=== PATIENT | female | born 1985 | race Asian ===

== ENCOUNTER 2019-10-08 17:55 | Emergency (ER) | payer OTHER ==
[2019-10-08 18:09] VITALS: BP 131/67
[2019-10-08] MEDS ORDERED: HYDROcod/ACET 5/325 Prepack 4 PO STA (18:18)
[2019-10-08] MEDS ORDERED: CLINDAMYCIN 150 MG CAPSULE PO STA (18:18)
[2019-10-08] MEDS ORDERED: HYDROcod/ACETAM 5/325 MG TABLET PO STA (18:18)
--- NOTE | 2019-10-08 18:20 | ED Physician Documentation ---
PD HPI HEENT - Stated complaint Stated Complaint: dental pain - Chief complaint Chief Complaint: Heent - History obtained from History obtained from: Patient - History of Present Illness Timing - onset: Other (Healthy 34-year-old woman with a tooth ache since midday yesterday on the left upper mandibular teeth anteriorly. No facial swelling or fevers. She last saw dentist about 3 months ago before they moved out here from [place], states that she had several teeth at that time that needed addressing and root canals etc.) Review of Systems Constitutional: denies: Fever, Chills Throat: denies: Sore throat Cardiac: denies: Chest pain / pressure, Palpitations Respiratory: denies: Dyspnea PD PAST MEDICAL HISTORY - Present Medications Home Medications: Ambulatory Orders Medication Instructions Recorded Confirmed Clindamycin HCl [Clindamycin 300MG 300 mg PO Q6H #28 capsule 10/08/19 CAP] Hydrocodone/Acetaminophen 1 - 2 each PO Q6H PRN #14 tablet 10/08/19 [Hydrocodon-Acetaminophen 5-325] - Allergies Allergies/Adverse Reactions: Allergies Allergy/AdvReac Type Severity Reaction Status Date / Time shellfish derived Allergy Unknown Verified 10/08/19 18:06 - Social History Does the pt smoke?: No Smoking Status: Never smoker Does the pt drink ETOH?: Yes Does the pt have substance abuse?: No PD ED PE NORMAL - Vitals Vital signs reviewed: Yes - General General: Alert and oriented X 3, Other (Appears slightly uncomfortable) - HEENT HEENT: Other (9. Is tender, there is no obvious cavity there though. She does have a lot of fillings. No facial swelling or trismus. No sublingual edema.) - Neck Neck: Supple, no meningeal sign, No bony TTP - Neuro Neuro: Alert and oriented X 3, Normal speech Results - Vitals Vitals: Vital Signs - 24 hr 10/08/19 18:06 Temperature 36.6 C Heart Rate 80 Respiratory 15 Rate Blood Pressure 131/67 H O2 Saturation 99 Oxygen O2 Source Room air Departure - Departure Disposition: 01 Home, Self Care Clinical Impression: Dental abscess Condition: Good Record reviewed to determine appropriate education?: Yes Instructions: ED Abscess Dental Prescriptions: Clindamycin HCl [Clindamycin 300MG CAP] 300 mg PO Q6H #28 capsule Hydrocodone/Acetaminophen [Hydrocodon-Acetaminophen 5-325] 1 - 2 each PO Q6H PRN #14 tablet PRN Reason: pain Comments: It is very important that you follow-up with a dentist. When it comes to dental problems like yours, the emergency department can only offer a short-term solution to your long-term problem. A couple of low cost options for dental care include: [facility] in [place], calls [phone] for an appointment Or [facility] in [place], call [phone] for an appointment. Your blood pressure was elevated today on check into the emergency department. This does not mean that you have hypertension, it is a common phenomenon to come to the emergency department and have elevated blood pressure. I recommend that you see your primary care physician within the week to have it rechecked when you are feeling better.
== END 2019-10-08 18:34 | disposition home or self-care (01) ==
LOC: ED 17:55
DX: K04.7 Periapical abscess without sinus (principal); R03.0 Elevated blood-pressure reading, without diagnosis of hypertension
CPT/HCPCS: 99282; 99283; A9270

== ENCOUNTER 2019-10-25 12:31 | Emergency (ER) | payer OTHER ==
[2019-10-25 13:55] LABS: BASOPHILS % (AUTO) 0.4 %; EOSINOPHILS # (AUTO) 0.1 10^3/uL (0.0-0.7); HGB - HEMOGLOBIN 13.6 g/dL (12.0-16.0); LYMPHOCYTES # (AUTO) 3.5 10^3/uL (1.5-3.5); LYMPHOCYTES % (AUTO) 36.9 %; MEAN CORPUSCULAR HEMOGLOBIN 27.8 pg (27.0-31.0); MEAN CORPUSCULAR HGB CONC 33.6 g/dL (32.0-36.0); MEAN CORPUSCULAR VOLUME 82.8 fL (81.0-99.0); MEAN PLATELET VOLUME 8.7 fL (7.9-10.8); MONOCYTES # (AUTO) 0.6 10^3/uL (0.0-1.0); MONOCYTES % (AUTO) 6.4 %; NEUTROPHILS # (AUTO) 5.2 10^3/uL (1.5-6.6); NEUTROPHILS % (AUTO) 55.1 %; PLT - PLATELET COUNT 267 10^3/uL (130-450); RED BLOOD COUNT 4.89 10^6/uL (4.20-5.40); RED CELL DISTRIBUTION WIDTH 12.6 % (12.0-15.0); WHITE BLOOD COUNT 9.4 x10^3/uL (4.8-10.8)
--- NOTE | 2019-10-25 14:01 | Ultrasound Report ---
Reason: pelvic pain 7w Procedure Date: 10/25/2019 Accession Number: [id number] / [id number] Procedure: US - OB First Trimester CPT Code: Final Report FULL RESULT: EXAM: FIRST TRIMESTER OBSTETRIC ULTRASOUND (Less than 11 weeks) EXAM DATE: 10/25/2019 01:40 PM. CLINICAL HISTORY: Pelvic pain. History of left ovarian dermoid. LMP: 09/04/2019. COMPARISONS: None. TECHNIQUE: Transabdominal and transvaginal ultrasound examination with static image and cine loop documentation. CLINICAL DATES: EGA 7 weeks 2 days with IRA 06/10/2020 based on LMP 09/04/2019. ASSESSMENT: Gestational Sac: Single intrauterine. Mean gestational sac diameter: 18 mm = 6 weeks 5 days. Embryo: CRL (crown-rump length) 7 mm = 6 weeks 3 days. Cardiac activity: 130 beats per minute. Yolk sac: 4 mm. Amniotic fluid: Not accurately assessed at this gestational age. Early placenta: Not visible at this gestational age. Other: Tiny hypoechoic collection adjacent to the gestational sac measuring 8 x 4 mm in the sagittal plane, compatible with a perigestational bleed. MATERNAL STRUCTURES: Uterus: Anteverted. Unremarkable. Cervix: Closed. Right Ovary/Adnexa: The ovary measures 3.6 x 2.2 x 3.0 cm, volume 12.3 cc. Normal echotexture. Blood flow is present. It contains a corpus luteum measuring 1.7 x 1.4 x 1.7 cm. Left Ovary/Adnexa: The ovary measures 3.5 x 2.6 x 3.5 cm, volume 16.5 cc. Normal echotexture. Blood flow is present. Contains an avascular echogenic mass measuring 2.8 x 2.5 x 2.8 cm, compatible with known dermoid. Free Fluid: None. Other: None. IMPRESSION: 1. Single viable intrauterine at EGA 6 weeks 3 days with IRA 06/16/2020 based on crown-rump length, which is discordant with expected dates based on given LMP. 2. Assigned dating is IRA 06/16/2020 based on current ultrasound. RADIA
[2019-10-25 14:08] LABS: ALBUMIN/GLOBULIN RATIO 1.1 (1.0-2.2); BILIRUBIN,TOTAL 0.5 mg/dL (0.2-1.0); CALCIUM 9.1 mg/dL (8.5-10.3); CREATININE 0.6 mg/dL (0.4-1.0); TOTAL PROTEIN 7.7 g/dL (6.7-8.2)
[2019-10-25 14:42] LABS: BILIRUBIN,URINE NEGATIVE (NEGATIVE); GLUCOSE, URINE (UA) NEGATIVE (NEGATIVE); KETONES,URINE (UA) NEGATIVE (NEGATIVE); LEUKOCYTE ESTERASE, URINE NEGATIVE (NEGATIVE); NITRITE,URINE NEGATIVE (NEGATIVE); OCCULT BLOOD,URINE NEGATIVE (NEGATIVE); PH,URINE 6.5 PH (5.0-7.5); PROTEIN,URINE NEGATIVE (NEGATIVE); UROBILINOGEN,URINE 0.2 (NORMAL) E.U./dL (NORMAL)
[2019-10-25 14:45] LABS: CLARITY,URINE CLEAR (CLEAR)
--- NOTE | 2019-10-25 14:49 | ED Physician Documentation ---
PD HPI FEMALE - Stated complaint Stated Complaint: PELVIC PX - Chief complaint Chief Complaint: Abd Pain - History obtained from History obtained from: Patient, Family - History of Present Illness Timing - onset: How many days ago (4) Timing - duration: Days (4) Timing - details: Gradual onset, Still present, Waxing and waning Associated symptoms: Pelvic pain, Urinary frequency. No: Vaginal pain, Vaginal bleeding Contributing factors: OB-ACUTE CARE NURSE History: G (3), P (2) Similar symptoms before: Has not had sx before Recently seen: Not recently seen - Additional information Additional information: ~34-year-old female with early has developed pelvic pain in the lower right side and this is been present for about 1 week. She has had some nausea she denies any vomiting she is been able to drink water having normal bowel movement. She is approximately 7 weeks by dates and she has had 2 successful pregnancies previously. Review of Systems Constitutional: denies: Fever, Chills, Myalgias, Fatigue Eyes: denies: Decreased vision Ears: denies: Loss of hearing, Ear pain Nose: denies: Rhinorrhea / runny nose, Congestion, Foreign Body Throat: denies: Dental pain / toothache, Oral lesions / sores, Sore throat Cardiac: denies: Chest pain / pressure, Palpitations Respiratory: denies: Dyspnea, Cough GI: reports: Abdominal Pain, Nausea. denies: Vomiting, Constipation, Diarrhea : reports: Frequency. denies: Dysuria Skin: denies: Rash, Lesions Musculoskeletal: denies: Neck pain, Back pain, Extremity pain Neurologic: denies: Generalized weakness, Focal weakness, Numbness PD PAST MEDICAL HISTORY - Past Medical History Past Medical History: No - Present Medications Home Medications: Ambulatory Orders Medication Instructions Recorded Confirmed Clindamycin HCl [Clindamycin 300MG 300 mg PO Q6H #28 capsule 10/08/19 CAP] Hydrocodone/Acetaminophen 1 - 2 each PO Q6H PRN #14 tablet 10/08/19 [Hydrocodon-Acetaminophen 5-325] - Allergies Allergies/Adverse Reactions: Allergies Allergy/AdvReac Type Severity Reaction Status Date / Time shellfish derived Allergy Unknown Verified 10/08/19 18:06 unknown antibiotic Allergy Unknown Uncoded 10/25/19 12:46 - Social History Does the pt smoke?: No Smoking Status: Never smoker Does the pt drink ETOH?: Yes Does the pt have substance abuse?: No PD ED PE NORMAL - Vitals Vital signs reviewed: Yes (hypertensive mild ) - General General: Alert and oriented X 3, No acute distress, Well developed/nourished - HEENT HEENT: Atraumatic, PERRL, EOMI - Neck Neck: Supple, no meningeal sign - Cardiac Cardiac: RRR, No murmur - Respiratory Respiratory: No respiratory distress, Clear bilaterally - Abdomen Abdomen: Normal bowel sounds, Soft, Non distended, No organomegaly, Other (mild RLQ pain to palpation without gaurding or rebound. 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, No motor deficit, No sensory deficit, Normal speech Eye Opening: Spontaneous Motor: Obeys Commands Verbal: Oriented GCS Score: 15 - Psych Psych: Normal mood, Normal affect Results - Vitals Vitals: Vital Signs - 24 hr 10/25/19 10/25/19 12:37 14:49 Temperature 36.5 C 37.2 C Heart Rate 63 79 Respiratory 16 24 Rate Blood Pressure 137/89 H 126/69 O2 Saturation 96 98 Oxygen O2 Source Room air - Labs Labs: Laboratory Tests 10/25/19 10/25/19 10/25/19 13:47 13:49 13:49 WBC 9.4 RBC 4.89 Hgb 13.6 Hct 40.5 MCV 82.8 MCH 27.8 MCHC 33.6 RDW 12.6 Plt Count 267 MPV 8.7 Neut # (Auto) 5.2 Lymph # (Auto) 3.5 Branch # (Auto) 0.6 Eos # (Auto) 0.1 Baso # (Auto) 0.0 Absolute Nucleated RBC 0.00 Nucleated RBC % 0.0 Sodium 136 Potassium 3.9 Chloride 101 Carbon Dioxide 24 Anion Gap 11.0 BUN 9 Creatinine 0.6 Estimated GFR (MDRD) 116 Glucose 97 Calcium 9.1 Total Bilirubin 0.5 AST 17 ALT 16 Alkaline Phosphatase 31 L Total Protein 7.7 Albumin 4.0 Globulin 3.7 Albumin/Globulin Ratio 1.1 Lipase 31 HCG, Quant Urine Color YELLOW Urine Clarity CLEAR Urine pH 6.5 Ur Specific [place] 1.025 Urine Protein NEGATIVE Urine Glucose (UA) NEGATIVE Urine Ketones NEGATIVE Urine Occult Blood NEGATIVE Urine Nitrite NEGATIVE Urine Bilirubin NEGATIVE Urine Urobilinogen 0.2 (NORMAL) Ur Leukocyte Esterase NEGATIVE Ur Microscopic Review NOT INDICATED Urine Culture Comments NOT INDICATED Blood Type 10/25/19 10/25/19 13:49 13:49 WBC RBC Hgb Hct MCV MCH MCHC RDW Plt Count MPV Neut # (Auto) Lymph # (Auto) Branch # (Auto) Eos # (Auto) Baso # (Auto) Absolute Nucleated RBC Nucleated RBC % Sodium Potassium Chloride Carbon Dioxide Anion Gap BUN Creatinine Estimated GFR (MDRD) Glucose Calcium Total Bilirubin AST ALT Alkaline Phosphatase Total Protein Albumin Globulin Albumin/Globulin Ratio Lipase HCG, Quant 92054.00 Urine Color Urine Clarity Urine pH Ur Specific [place] Urine Protein Urine Glucose (UA) Urine Ketones Urine Occult Blood Urine Nitrite Urine Bilirubin Urine Urobilinogen Ur Leukocyte Esterase Ur Microscopic Review Urine Culture Comments Blood Type A POSITIVE - Rads (name of study) u/s ob Radiology: Prelim report reviewed (Impression: 1. Single viable intrauterine at estimated gestational age 3 weeks 6 weeks 3 days with IRA 06/16/2020 based on crown-rump length, which is discordant with expected dates based on given LMP. Assigned dating is IRA 06/16/2020 based on current ultrasound.), EMP read indepedently, See rad report PD MEDICAL DECISION MAKING - ED course Complexity details: reviewed results, re-evaluated patient, considered differential, d/w patient, d/w family ED course: 34-year-old female with right lower quadrant pelvic pain has a corpus luteum cyst on the right and she has a dermoid on the left. I suspect if anything is causing this patient's issue with pain it would be the corpus luteum. Departure - Departure Disposition: 01 Home, Self Care Clinical Impression: Corpus luteum cyst of right ovary Condition: Stable Instructions: Cyst Ovarian About Follow-Up: JACQUELINE Ventura [Provider Group] Forms: Activity restrictions
[2019-10-25 14:50] VITALS: BP 126/69
== END 2019-10-25 15:10 | disposition home or self-care (01) ==
LOC: ED 12:31
DX: O34.81 Maternal care for other abnormalities of pelvic organs, first trimester (principal); N83.11 Corpus luteum cyst of right ovary; O99.89 Other specified diseases and conditions complicating pregnancy, childbirth and the puerperium; D27.1 Benign neoplasm of left ovary; Z3A.01 Less than 8 weeks gestation of pregnancy
CPT/HCPCS: 36415; 76801; 76817; 80053; 81001; 81003; 83690; 84702; 85025; 86900; 86901; 87086; 99284

== ENCOUNTER 2019-11-25 08:56 | Emergency (ER) | payer OTHER ==
--- NOTE | 2019-11-25 09:09 | ED Physician Documentation ---
PD HPI NVD - Stated complaint Stated Complaint: VOMITTING - Chief complaint Chief Complaint: Abd Pain - History obtained from History obtained from: Patient - History of Present Illness Timing - onset: How many weeks ago (7) Timing - duration: Weeks (7) Timing - details: Gradual onset, Still present (More consistent and worse nausea and vomiting the last several days to week. She is keeping some fluids down but has dark urine. Otherwise general weakness. She denies abdominal pain per se. She has had knowledge of nausea with vomiting since discovering 4 weeks gestation which was 7 weeks ago.She has had an ultrasound which demonstrated a single IUP both at 6 weeks and again in the office last week.) Associated symptoms: Loss of appetite. No: Fever, Abdominal pain, Near syncope / syncope, Dysuria Contributing factors: Other (). No: Sick contact, Bad food, Diabetes Improved by: No: Vomiting Worsened by: Eating. No: Breathing Similar symptoms before: Diagnosis (She has had hyperemesis with prior pregnancies and did not get much improvement with Zofran in the past. She is currently on promethazine and vitamin B6 daily) Recently seen: Clinic (1 week ago) Review of Systems Constitutional: reports: Fatigue, Weight Loss (only a few lbs). denies: Fever, Chills, Myalgias Nose: denies: Rhinorrhea / runny nose, Congestion Throat: denies: Sore throat Respiratory: denies: Cough GI: reports: Nausea, Vomiting, Diarrhea. denies: Abdominal Pain, Constipation, Hematemesis, Bloody / black stool : denies: Dysuria, Frequency Skin: denies: Rash, Lesions Neurologic: reports: Generalized weakness. denies: Focal weakness, Numbness, Near syncope PD PAST MEDICAL HISTORY - Past Medical History Cardiovascular: None Respiratory: None Neuro: None Endocrine/Autoimmune: None GI: None - Present Medications Home Medications: Ambulatory Orders Medication Instructions Recorded Confirmed Doxylamine Succinate [Wal-Dirk] 25 mg PO Q6H PRN #60 tablet 11/25/19 Famotidine 20 mg PO DAILY #30 tablet 11/25/19 Potassium Chloride 10 meq PO DAILY #7 tablet.er 11/25/19 Prochlorperazine Supp [Compazine 25 mg VA BID PRN #6 supp 11/25/19 Supp] Promethazine [Phenergan] 25 mg ORAL Q6HR 11/25/19 11/25/19 Pyridoxine HCl (Vitamin B6) 100 mg PO BID #30 tablet 11/25/19 [Vitamin B-6] dexAMETHasone [Decadron] 4 mg PO DAILY #5 tablet 11/25/19 - Allergies Allergies/Adverse Reactions: Allergies Allergy/AdvReac Type Severity Reaction Status Date / Time shellfish derived Allergy Unknown Verified 10/08/19 18:06 unknown antibiotic Allergy Unknown Uncoded 10/25/19 12:46 - Social History Does the pt smoke?: No Smoking Status: Never smoker Does the pt drink ETOH?: Yes Does the pt have substance abuse?: No PD ED PE NORMAL - Vitals Vital signs reviewed: Yes - General General: Alert and oriented X 3, No acute distress, Well developed/nourished - HEENT HEENT: Ears normal, Pharynx benign. No: Moist mucous membranes - Neck Neck: Supple, no meningeal sign, No adenopathy - Cardiac Cardiac: RRR, No murmur - Respiratory Respiratory: Clear bilaterally - Abdomen Abdomen: Normal bowel sounds, Soft, Non tender, Non distended, Other (gravid with fundus low above pubis in this obese patient.) - Back Back: No CVA TTP - Derm Derm: Normal color, Warm and dry - Extremities Extremities: No tenderness to palpate, Normal ROM s pain Results - Vitals Vitals: Vital Signs - 24 hr 11/25/19 11/25/19 11/25/19 09:04 09:41 10:13 Temperature 36.5 C Heart Rate 92 97 87 Respiratory 24 16 16 Rate Blood Pressure 150/119 H 112/87 H 127/86 H O2 Saturation 96 99 99 11/25/19 13:00 Temperature 36.3 C L Heart Rate 79 Respiratory 16 Rate Blood Pressure 122/64 O2 Saturation 97 Oxygen O2 Source Room air - Labs Labs: Laboratory Tests 11/25/19 11/25/19 09:05 09:05 WBC 9.5 RBC 4.87 Hgb 13.9 Hct 40.9 MCV 84.0 MCH 28.5 MCHC 34.0 RDW 12.7 Plt Count 283 MPV 8.6 Neut # (Auto) 5.7 Lymph # (Auto) 3.1 [place] # (Auto) 0.5 Eos # (Auto) 0.1 Baso # (Auto) 0.0 Absolute Nucleated RBC 0.00 Nucleated RBC % 0.0 Sodium 133 L Potassium 3.0 L Chloride 101 Carbon Dioxide 22 Anion Gap 10.0 BUN 8 Creatinine 0.7 Estimated GFR (MDRD) 97 Glucose 108 H Calcium 8.6 Magnesium 2.0 Total Bilirubin 0.5 AST 20 ALT 15 Alkaline Phosphatase 34 L Total Protein 7.8 Albumin 4.0 Globulin 3.8 Albumin/Globulin Ratio 1.1 Lipase 28 PD MEDICAL DECISION MAKING - ED course Complexity details: reviewed results, re-evaluated patient (She is feeling improved with IV fluids antiemetics and acid reducing medicine. She is able to take some fluids orally. I presume she has some gastritis now on top of the related vomiting. She had not had improvement with Phenergan nor Zofran so can change to different antiemetics.), considered differential, d/w patient Departure - Departure Disposition: 01 Home, Self Care Clinical Impression: Hyperemesis gravidarum, Dehydration, Hypokalemia Condition: Stable Record reviewed to determine appropriate education?: Yes Instructions: ED Nausea Vomiting Prescriptions: dexAMETHasone [Decadron] 4 mg PO DAILY #5 tablet Doxylamine Succinate [Wal-Dirk] 25 mg PO Q6H PRN #60 tablet PRN Reason: Nausea / Vomiting Famotidine 20 mg PO DAILY #30 tablet Potassium Chloride 10 meq PO DAILY #7 tablet.er Prochlorperazine Supp [Compazine Supp] 25 mg VA BID PRN #6 supp PRN Reason: Nausea / Vomiting Pyridoxine HCl (Vitamin B6) [Vitamin B-6] 100 mg PO BID #30 tablet Comments: Small frequent fluids and bland food initially. Progress diet as able. Famotidine acid reducing medicine daily for the next month as her stomach is likely irritated from all the vomiting. Since the promethazine was not working well, we can try other nausea medicines. Doxylamine every 6 hours if needed for nausea. Compazine suppository if needed for nausea and vomiting despite the oral medicine. Be sure to continue the vitamin B6 twice daily. Hold your vitamins for now and continue with the Flintstones vitamins of those are better on your stomach. Follow-up with your [employer] this coming week and return as needed. Your potassium level was low on blood testing so add potassium supplement daily for a week. Discharge Date/Time: 11/25/19 13:20
[2019-11-25] MEDS ORDERED: DEXAMETHASONE 10 MG/ML VIAL IVP STA (09:23)
[2019-11-25] MEDS ORDERED: FAMOTIDINE 20 MG/2 ML VIAL IVP STA (09:23)
[2019-11-25] MEDS ORDERED: SODIUM CHLORIDE 0.9% 1,000 ML IV ONE ×2 (09:23→11:06)
[2019-11-25] MEDS ORDERED: PROCHLORPERAZINE 10 MG/2 ML VIAL IVP STA (09:23)
[2019-11-25] MEDS ORDERED: diphenhydrAMINE INJ 50 MG/ML VIAL IVP STA (09:23)
[2019-11-25 09:29] LABS: BASOPHILS % (AUTO) 0.4 %; EOSINOPHILS # (AUTO) 0.1 10^3/uL (0.0-0.7); EOSINOPHILS % (AUTO) 1.5 %; HGB - HEMOGLOBIN 13.9 g/dL (12.0-16.0); LYMPHOCYTES # (AUTO) 3.1 10^3/uL (1.5-3.5); LYMPHOCYTES % (AUTO) 32.6 %; MEAN CORPUSCULAR HEMOGLOBIN 28.5 pg (27.0-31.0); MEAN PLATELET VOLUME 8.6 fL (7.9-10.8); MONOCYTES # (AUTO) 0.5 10^3/uL (0.0-1.0); MONOCYTES % (AUTO) 5.7 %; NEUTROPHILS # (AUTO) 5.7 10^3/uL (1.5-6.6); NEUTROPHILS % (AUTO) 59.5 %; PLT - PLATELET COUNT 283 10^3/uL (130-450); RED BLOOD COUNT 4.87 10^6/uL (4.20-5.40); RED CELL DISTRIBUTION WIDTH 12.7 % (12.0-15.0); WHITE BLOOD COUNT 9.5 x10^3/uL (4.8-10.8)
[2019-11-25 09:41] LABS: ALBUMIN/GLOBULIN RATIO 1.1 (1.0-2.2); BILIRUBIN,TOTAL 0.5 mg/dL (0.2-1.0); CALCIUM 8.6 mg/dL (8.5-10.3); CREATININE 0.7 mg/dL (0.4-1.0); TOTAL PROTEIN 7.8 g/dL (6.7-8.2)
[2019-11-25] MEDS ORDERED: MAG HYDROX/AL HYDROX/SIMETH 30 ML UDC PO STA (11:07)
[2019-11-25] MEDS ORDERED: POTASSIUM CHLOR 10 MEQ/100 ML 10 MEQ/100 ML BAG IV ONE (11:07)
[2019-11-25 13:00] VITALS: BP 122/64
--- NOTE | 2019-12-01 14:04 | ED Physician Documentation ---
ED Addendum - Addendum Addendum: 12/01/19 14:04 Took call from pharmacy, they do not carry Compazine suppositories. I authorized to change to Phenergan 25 mg per rectum every 6 hours as needed for nausea #12
== END 2019-11-25 13:20 | disposition home or self-care (01) ==
LOC: ED 08:56
DX: O21.1 Hyperemesis gravidarum with metabolic disturbance (principal); Z3A.11 11 weeks gestation of pregnancy
CPT/HCPCS: 36415; 80053; 83690; 83735; 85025; 96361; 96365; 96375; 99284; 99285; A9270; J1200

== ENCOUNTER 2021-10-06 09:45 | Emergency (ER) | payer OTHER ==
--- NOTE | 2021-10-06 09:59 | ED Physician Documentation ---
PD HPI URI - Stated complaint Stated Complaint: SOA/COUGH - Chief complaint Chief Complaint: Resp - History obtained from History obtained from: Patient - History of Present Illness Timing - onset: How many weeks ago (had cough and fevers 2 weeks ago and tested positive for COVID over 5-6 days, then was improving general symptoms and tested negative, but continued with cough/dyspnea. The dyspnea with some congestion/wet cough has increased the past 3-5 days.) Timing duration: Weeks (2) Timing details: Gradual onset, Still present (increased dyspnea and cough the past several days in particular.) Associated symptoms: Fever (2 weeks ago for 5-6 days, but not since.), Chills, Nasal congestion, Dry cough (now having some clear sputum to it.) Contributing factors: No: Immunocompromised, Unimmunized, COPD / asthma Worsened by: Activity, Position (feels worse lying down to sleep at night, feeling of crackles/wet in chest.) Similar symptoms before: Diagnosis (she had some heart failure/fluid in lungs at end of last 1 1/2 years ago, with diuretics given. Had eval of ECHO and MRI without subsequent cardiology follow up. Did well post .) Recently seen: Not recently seen Review of Systems Constitutional: reports: Fever (2 weeks ago), Chills Nose: reports: Congestion Cardiac: denies: Chest pain / pressure, Palpitations, Pedal edema Respiratory: reports: Dyspnea, Cough, Wheezing GI: reports: Nausea. 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 : None HEENT: None Psych: None Musculoskeletal: None Derm: Eczema - Past Surgical History Past Surgical History: No - Present Medications Home Medications: Ambulatory Orders Medication Instructions Recorded Confirmed Albuterol Sulf [Ventolin Hfa 2 - 3 puffs INH Q4HR PRN #1 inhaler 10/06/21 Inhaler] Furosemide [Lasix] 20 mg PO DAILY 7 Days #7 tablet 10/06/21 cephALEXin [Keflex] 500 mg PO TID #20 cap 10/06/21 dexAMETHasone [Decadron] 4 mg PO DAILY #5 tablet 10/06/21 - Allergies Allergies/Adverse Reactions: Allergies Allergy/AdvReac Type Severity Reaction Status Date / Time shellfish derived Allergy Unknown Verified 10/06/21 09:48 unknown antibiotic Allergy Unknown Uncoded 10/25/19 12:46 - Social History Does the pt smoke?: No Smoking Status: Never smoker Does the pt drink ETOH?: Yes Does the pt have substance abuse?: No - Immunizations Immunizations are current?: Yes PD ED PE NORMAL - Vitals Vital signs reviewed: Yes - General General: Alert and oriented X 3, Well developed/nourished - HEENT HEENT: Pharynx benign - Neck Neck: Supple, no meningeal sign, No adenopathy - Cardiac Cardiac: RRR, No murmur - Respiratory Respiratory: No: Clear bilaterally (no coarse sounds. has some exp wheezes centrally. ) - Abdomen Abdomen: Soft, Non tender - Derm Derm: Normal color, Warm and dry - Extremities Extremities: Other (minimal edema in both lower legs. ) - Neuro Neuro: Alert and oriented X 3, No motor deficit, Normal speech Results - Vitals Vitals: Vital Signs - 24 hr 10/06/21 10/06/21 09:48 10:42 Temperature 36.4 C L Heart Rate 84 74 Respiratory 20 26 H Rate Blood Pressure 148/108 H 145/100 H O2 Saturation 98 97 Oxygen O2 Source Room air - EKG (time done) 10:31 Rate: Rate (enter#) (78) Rhythm: NSR, Other (frequent PVCs (bigeminal briefly)) [place]: Normal Intervals: Normal [place] QRS: Normal Ischemia: Normal ST segments. No: ST elevation c/w ischemia, ST depression - Labs Labs: Laboratory Tests 10/06/21 10/06/21 10/06/21 10:30 10:30 10:30 WBC 6.7 RBC 5.10 Hgb 14.1 Hct 43.2 MCV 84.7 MCH 27.6 MCHC 32.6 RDW 12.4 Plt Count 292 MPV 8.8 Neut # (Auto) 3.3 Lymph # (Auto) 2.5 [place] # (Auto) 0.4 Eos # (Auto) 0.5 Baso # (Auto) 0.0 Absolute Nucleated RBC 0.00 Nucleated RBC % 0.0 Sodium 135 Potassium 4.2 Chloride 102 Carbon Dioxide 26 Anion Gap 7.0 BUN 10 Creatinine 0.7 Estimated GFR (MDRD) 96 Glucose 109 H Calcium 8.7 Total Bilirubin 0.6 AST 17 ALT 19 Alkaline Phosphatase 38 L Troponin I High Sens 3.9 C-Reactive Protein < 1.0 B-Natriuretic Peptide Total Protein 7.8 Albumin 4.1 Globulin 3.7 Albumin/Globulin Ratio 1.1 Lipase 30 10/06/21 10:30 WBC RBC Hgb Hct MCV MCH MCHC RDW Plt Count MPV Neut # (Auto) Lymph # (Auto) [place] # (Auto) Eos # (Auto) Baso # (Auto) Absolute Nucleated RBC Nucleated RBC % Sodium Potassium Chloride Carbon Dioxide Anion Gap BUN Creatinine Estimated GFR (MDRD) Glucose Calcium Total Bilirubin AST ALT Alkaline Phosphatase Troponin I High Sens C-Reactive Protein B-Natriuretic Peptide 22 Total Protein Albumin Globulin Albumin/Globulin Ratio Lipase - Rads (name of study) chest xray Radiology: Prelim report reviewed (increased interstitial markings could be c/w edema, atypical pneumonia. Enlarged heart. ), See rad report PD MEDICAL DECISION MAKING - ED course Complexity details: reviewed results, considered differential (residual of covid with dyspnea possible, vs developing secondary pneumonia vs myocarditis. Prior history of related cardiomyopathy. Unsure the effect of recent COVID on this. Can go short course diuretic, steroid, inhaler and abx. ), d/w patient Departure - Departure Disposition: 01 Home, Self Care Clinical Impression: Dyspnea due to COVID-19, Fluid retention Pneumonia Qualifiers: Pneumonia type: due to unspecified organism Laterality: unspecified laterality Lung location: lower lobe of lung Qualified Code(s): J18.9 - Pneumonia, unspecified organism Condition: Stable Record reviewed to determine appropriate education?: Yes Instructions: ED Pneumonia Adult Follow-Up: [facility] [Provider Group] Prescriptions: Albuterol Sulf [Ventolin Hfa Inhaler] 2 - 3 puffs INH Q4HR PRN #1 inhaler PRN Reason: Shortness Of Air/Wheezing dexAMETHasone [Decadron] 4 mg PO DAILY #5 tablet cephALEXin [Keflex] 500 mg PO TID #20 cap Furosemide [Lasix] 20 mg PO DAILY 7 Days #7 tablet Comments: Your chest x-ray shows a little bit of fluid within the lung tissue on both sides. This can be findings consistent with Covid infection and may last for a few weeks. Alternatively would be developing secondary pneumonia or perhaps a little bit of fluid retention/edema. We can treat this with albuterol inhaler 2 puffs 3-4 times a day regularly for the next several days to week. Also Decadron steroid daily for the next 5 days for inflammation of the airways. This would be the treatment for the inflammation related to the Covid infection. Add cephalexin 3 times a day for a week for potential secondary bacterial infection. Also add furosemide daily for the next 3 to 7 days to help with possible fluid retention. Your blood test do not suggest any signs of overt heart failure, kidney failure, heart muscle injury. [facility] Recheck if not improving well over the next several days. Discharge Date/Time: 10/06/21 11:40
[2021-10-06] MEDS ORDERED: ALBUTEROL 1 PUFF INH STA (10:17)
[2021-10-06 10:34] LABS: BASOPHILS % (AUTO) 0.6 %; EOSINOPHILS # (AUTO) 0.5 10^3/uL (0.0-0.7); EOSINOPHILS % (AUTO) 7.1 %; HCT - HEMATOCRIT 43.2 % (37.0-47.0); HGB - HEMOGLOBIN 14.1 g/dL (12.0-16.0); LYMPHOCYTES # (AUTO) 2.5 10^3/uL (1.5-3.5); LYMPHOCYTES % (AUTO) 37.2 %; MEAN CORPUSCULAR HEMOGLOBIN 27.6 pg (27.0-31.0); MEAN CORPUSCULAR HGB CONC 32.6 g/dL (32.0-36.0); MEAN CORPUSCULAR VOLUME 84.7 fL (81.0-99.0); MEAN PLATELET VOLUME 8.8 fL (7.9-10.8); MONOCYTES # (AUTO) 0.4 10^3/uL (0.0-1.0); MONOCYTES % (AUTO) 5.7 %; NEUTROPHILS # (AUTO) 3.3 10^3/uL (1.5-6.6); NEUTROPHILS % (AUTO) 49.2 %; PLT - PLATELET COUNT 292 10^3/uL (130-450); RED CELL DISTRIBUTION WIDTH 12.4 % (12.0-15.0); WHITE BLOOD COUNT 6.7 x10^3/uL (4.8-10.8)
[2021-10-06 10:44] VITALS: BP 145/100
[2021-10-06 10:53] LABS: ALBUMIN 4.1 g/dL (3.2-5.5); ALBUMIN/GLOBULIN RATIO 1.1 (1.0-2.2); ALKALINE PHOSPHATASE 38 IU/L (42-121); ALT ALANINE AMINOTRANSFERASE 19 IU/L (10-60); AST ASPARTATE AMINOTRANSFERASE 17 IU/L (10-42); BILIRUBIN,TOTAL 0.6 mg/dL (0.2-1.0); BUN - BLOOD UREA NITROGEN 10 mg/dL (6-20); CALCIUM 8.7 mg/dL (8.5-10.3); CARBON DIOXIDE - CO2 26 mmol/L (21-32); CHLORIDE 102 mmol/L (101-111); CREATININE 0.7 mg/dL (0.4-1.0); CRP - C-REACTIVE PROTEIN < 1.0 mg/dL (0-1.0); GFR - MDRD 96 (>89); GLUCOSE 109 mg/dL (70-100); LIPASE 30 U/L (22-51); POTASSIUM 4.2 mmol/L (3.5-5.0); SODIUM 135 mmol/L (135-145); TOTAL PROTEIN 7.8 g/dL (6.7-8.2)
--- NOTE | 2021-10-06 10:58 | XRAY Report ---
PROCEDURE: Chest 1 View X-Ray INDICATIONS: dyspnea, cough TECHNIQUE: One view of the chest was acquired. COMPARISON: None FINDINGS: Surgical changes and devices: None. Lungs and pleura: No pleural effusions or pneumothorax. There is an overall appearance of increased interstitial disease. Mediastinum: Mediastinal contours appear normal. Heart size is enlarged. Bones and chest wall: No suspicious bony lesions. Overlying soft tissues appear unremarkable. IMPRESSION: Cardiomegaly with increased interstitial markings. The latter could be suggestive of edema or potenti ally developing airspace disease such as pneumonia. Reviewed by: Janelle Murray MD on 10/06/2021 10:56 AM [facility] Approved by: Janelle Murray MD on 10/06/2021 10:56 AM [facility] Station ID: [id number]
[2021-10-06] MEDS ORDERED: FUROSEMIDE 20 MG TABLET PO STA (11:13)
[2021-10-06] MEDS ORDERED: cephALEXin 250 MG CAPSULE PO STA (11:13)
[2021-10-06] MEDS ORDERED: CHERRY SYRUP 10 ML UDC PO ONE (11:13)
[2021-10-06] MEDS ORDERED: DEXAMETHASONE 10 MG/ML VIAL PO STA (11:13)
== END 2021-10-06 11:40 | disposition home or self-care (01) ==
LOC: ED 09:45
DX: U07.1 COVID-19 (principal); J18.9 Pneumonia, unspecified organism
CPT/HCPCS: 36415; 71045; 80053; 83690; 83880; 84484; 85025; 86140; 93005; 94640; 94664; 99284; A9270

== ENCOUNTER 2021-10-27 09:39 | Emergency (ER) | payer OTHER ==
--- NOTE | 2021-10-27 11:00 | XRAY Report ---
PROCEDURE: Chest 1 View X-Ray INDICATIONS: sob TECHNIQUE: One view of the chest was acquired. COMPARISON: 10/06/2021 FINDINGS: Surgical changes and devices: None. Lungs and pleura: No pleural effusions or pneumothorax. Lungs are clear. Mediastinum: Mediastinal contours appear normal. Heart size is enlarged. Bones and chest wall: No suspicious bony lesions. Overlying soft tissues appear unremarkable. IMPRESSION: No acute cardiopulmonary pathology. Reviewed by: Rubens Allen MD on 10/27/2021 10:59 AM [facility] Approved by: Rubens Allen MD on 10/27/2021 10:59 AM [facility] Station ID: [id number]
--- NOTE | 2021-10-27 12:42 | ED Physician Documentation ---
PD HPI DYSPNEA - Stated complaint Stated Complaint: SOA - Chief complaint Chief Complaint: Resp - History obtained from History obtained from: Patient - Additional information Additional information: The patient comes emergency department chief complaint of recurrence of some dyspnea and wheezing over the last week. The patient also states she feels crackles in her chest when she lays down. The patient has history of pulmonary edema after previously she also was seen here a couple of weeks ago, about a month after arvin Covid, and was found to have some mild findings of fluid in her lungs. The patient states that she was placed on an albuterol inhaler and Lasix and that she completed the course of Lasix and felt better. However, over the past week she has begun to notice recurrence of symptoms. Review of her records reveals that at that time, her BNP was normal at 22. Her chest x-ray at that time was read as cardiomegaly with increasing interstitial findings, edema versus pneumonia. The patient states that in times past, when she had the pulmonary edema after , it was suggested that she follow-up with a mill attendant. However, she states that her doctor told her she probably had diabetes and never referred her to cardiology. Patient cites several years of frustrations with her PCP, after she which she decided to find a new one. However, she has not found a new PCP yet and is not currently scheduled to see anybody. She never did see cardiology. She has never had an echocardiogram. The patient denies any edema in her lower extremities at this time. No pain in the calves. No chest pain. No fevers. Review of Systems Ten Systems: 10 systems reviewed and negative Constitutional: reports: Reviewed and negative Eyes: reports: Reviewed and negative Ears: reports: Reviewed and negative Nose: reports: Reviewed and negative Throat: reports: Reviewed and negative Cardiac: reports: Reviewed and negative Respiratory: reports: Dyspnea GI: reports: Reviewed and negative : reports: Reviewed and negative Skin: reports: Reviewed and negative Musculoskeletal: reports: Reviewed and negative. 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 : None HEENT: None Psych: None Musculoskeletal: None Derm: Eczema - Past Surgical History Past Surgical History: No - Present Medications Home Medications: Ambulatory Orders Medication Instructions Recorded Confirmed No Known Home Medications 10/27/21 10/27/21 - Allergies Allergies/Adverse Reactions: Allergies Allergy/AdvReac Type Severity Reaction Status Date / Time shellfish derived Allergy Unknown Verified 10/06/21 09:48 unknown antibiotic Allergy Unknown Uncoded 10/25/19 12:46 - Social History Does the pt smoke?: No Smoking Status: Never smoker Does the pt drink ETOH?: Yes Does the pt have substance abuse?: No - Immunizations Immunizations are current?: Yes PD ED PE NORMAL - Vitals Vital signs reviewed: Yes - General General: Alert and oriented X 3, No acute distress, Well developed/nourished, Other (The patient is overall well-appearing and in no distress) - HEENT HEENT: Atraumatic, PERRL, EOMI, Moist mucous membranes - Neck Neck: Supple, no meningeal sign - Cardiac Cardiac: RRR, No murmur, Strong equal pulses - Respiratory Respiratory: No respiratory distress, Clear bilaterally - Abdomen Abdomen: Soft, Non tender, Other (Obese) - Derm Derm: Normal color, Warm and dry, No rash - Extremities Extremities: No deformity, No edema, No calf tenderness / cord - Neuro Neuro: Alert and oriented X 3, Other (Grossly intact) - Psych Psych: Normal mood, Normal affect Results - Vitals Vitals: Vital Signs - 24 hr 10/27/21 10/27/21 09:45 11:49 Temperature 36.0 C L Heart Rate 81 76 Respiratory 20 17 Rate Blood Pressure 157/88 H 129/77 O2 Saturation 97 100 Oxygen O2 Source Room air - Labs Labs: Laboratory Tests 10/27/21 11:24 B-Natriuretic Peptide 21 - Rads (name of study) Chest x-ray Radiology: Final report received, EMP read indepedently, See rad report (Negative) PD MEDICAL DECISION MAKING - ED course Complexity details: reviewed results, re-evaluated patient, considered differential, d/w patient ED course: The patient's BNP today was 21 and her chest x-ray is negative. I discussed with her that she does need to get established with a primary care physician and discuss whether she should be referred to cardiology for further evaluation. At this point in time, though I have considered putting her back on Lasix, I do not really have an indication for this, since her x-ray and BNP are both normal. I have advised the patient that she needs to get established with primary care as soon as possible. She may use the inhaler if this seems to help her. She has a single wheeze in her upper lung finn that I suspect is coming from one of her upper airways, but otherwise, she does not have any obvious bronchospasm. We discussed the usual indications for return Departure - Departure Disposition: 01 Home, Self Care Clinical Impression: Dyspnea Qualifiers: Dyspnea type: shortness of breath Qualified Code(s): R06.02 - Shortness of breath; R06.00 - Dyspnea, unspecified; R06.01 - Orthopnea Condition: Stable Instructions: ED Dyspnea Shortness of Breath Comments: Your chest x-ray looks good and has read by the radiologist is completely normal. Your BNP, the lab for congestive heart failure is completely normal, and slightly less than last time. It is not clear exactly why you are having the sense of shortness of breath, but there is no evidence of fluid retention at this time, whether in your lungs or elsewhere. It is important that you see your primary care physician as soon as possible to discuss further evaluation of the symptoms. For now, if the inhaler helps you to feel better you may use it. Further diuretics are unlikely to be of benefit at this time
[2021-10-27 12:49] VITALS: BP 132/76
== END 2021-10-27 12:52 | disposition home or self-care (01) ==
LOC: ED 09:39
DX: R06.02 Shortness of breath (principal); R06.01 Orthopnea
CPT/HCPCS: 36415; 83880; 99282; 99284

== ENCOUNTER 2022-05-17 18:32 | Emergency (ER) | payer OTHER ==
[2022-05-17 19:25] LABS: BILIRUBIN,URINE NEGATIVE (NEGATIVE); GLUCOSE, URINE (UA) NEGATIVE (NEGATIVE); KETONES,URINE (UA) NEGATIVE (NEGATIVE); LEUKOCYTE ESTERASE, URINE NEGATIVE (NEGATIVE); NITRITE,URINE NEGATIVE (NEGATIVE); OCCULT BLOOD,URINE NEGATIVE (NEGATIVE); PROTEIN,URINE NEGATIVE (NEGATIVE); UROBILINOGEN,URINE 0.2 (NORMAL) E.U./dL (NORMAL)
[2022-05-17 19:27] LABS: CLARITY,URINE CLEAR (CLEAR)
--- NOTE | 2022-05-17 19:36 | ED Physician Documentation ---
History of Present Illness - Stated complaint Stated Complaint: STOMACH PX - Chief complaint Chief Complaint: Abd Pain - Additonal information Additional information: 36-year-old female presents emergency department for evaluation of upper e pigastric pain. She is concerned she could have appendicitis. Patient reports that symptoms began 2 mornings ago. She initially vomited. She thought maybe she had the mild stomach Flu but her symptoms have not resolved. She is taken Tylenol without relief of symptoms. Though she has been pooping normally she did take some Colace just to see if that would help. She denies dysuria urgency or frequency. Denies a possibility of . No history of previous surgical interventions. Takes no prescribed medications but describes her self is prediabetic and is scheduled to see her doctor in follow-up of recent screening labs on 26 May Review of Systems Constitutional: denies: Fever, Chills Nose: reports: Reviewed and negative Throat: reports: Reviewed and negative Cardiac: reports: Reviewed and negative GI: reports: Abdominal Pain, Nausea. 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 : None HEENT: None Psych: None Musculoskeletal: None Derm: Eczema - Past Surgical History Past Surgical History: No - Present Medications Home Medications: Ambulatory Orders Medication Instructions Recorded Confirmed No Known Home Medications 10/27/21 05/17/22 - Allergies Allergies/Adverse Reactions: Allergies Allergy/AdvReac Type Severity Reaction Status Date / Time shellfish derived Allergy Unknown Verified 10/06/21 09:48 unknown antibiotic Allergy Unknown Uncoded 10/25/19 12:46 - Social History Does the pt smoke?: No Smoking Status: Never smoker Does the pt drink ETOH?: Yes Does the pt have substance abuse?: No - Immunizations Immunizations are current?: Yes PD ED PE NORMAL - General General: Alert and oriented X 3, No acute distress, Well developed/nourished - HEENT HEENT: Atraumatic, Moist mucous membranes - Neck Neck: Supple, no meningeal sign, No adenopathy - Cardiac Cardiac: RRR, No murmur - Respiratory Respiratory: No respiratory distress, Clear bilaterally - Abdomen Abdomen: Normal bowel sounds, Soft. No: Non tender (Exam is limited by body habitus. Mild tenderness elicited in the epigastrium and right flank. No guarding or rebound. McBurney's negative Tomas's) Results - Vitals Vitals: Vital Signs - 24 hr 05/17/22 18:38 Temperature 36.1 C L Heart Rate 87 Respiratory 16 Rate Blood Pressure 150/77 H O2 Saturation 96 Oxygen O2 Source Room air - Labs Labs: Laboratory Tests 05/17/22 05/17/22 05/17/22 19:10 19:54 19:54 WBC 7.8 RBC 4.89 Hgb 13.7 Hct 40.0 MCV 81.8 MCH 28.0 MCHC 34.3 RDW 12.2 Plt Count 262 MPV 8.8 Neut # (Auto) 3.9 Lymph # (Auto) 3.3 [place] # (Auto) 0.5 Eos # (Auto) 0.2 Baso # (Auto) 0.0 Absolute Nucleated RBC 0.00 Nucleated RBC % 0.0 Sodium 136 Potassium 3.6 Chloride 102 Carbon Dioxide 25 Anion Gap 9.0 BUN 12 Creatinine 0.6 Estimated GFR (MDRD) 114 Glucose 129 H Calcium 9.3 Total Bilirubin 0.4 AST 20 ALT 21 Alkaline Phosphatase 36 L Total Protein 7.6 Albumin 4.3 Globulin 3.3 Albumin/Globulin Ratio 1.3 Lipase 33 Urine Color YELLOW Urine Clarity CLEAR Urine pH 6.0 Ur Specific [place] 1.020 Urine Protein NEGATIVE Urine Glucose (UA) NEGATIVE Urine Ketones NEGATIVE Urine Occult Blood NEGATIVE Urine Nitrite NEGATIVE Urine Bilirubin NEGATIVE Urine Urobilinogen 0.2 (NORMAL) Ur Leukocyte Esterase NEGATIVE Ur Microscopic Review NOT INDICATED Urine Culture Comments NOT INDICATED - Rads (name of study) Ct abd Radiology: Final report received (No renal ureter or bladder calculi. Gallbladder is unremarkable. Hepatic steatosis is present. Fat-containing mass within the left adnexa. This may represent a dermoid.) PD MEDICAL DECISION MAKING - ED course Complexity details: reviewed results, re-evaluated patient, considered differential, d/w patient ED course: 36-year-old female presents emergency department for evaluation of 3 days upper epigastric abdominal pain. She has vomited once. She initially thought that perhaps she had the stomach flu but over the course last 3 days the pain has not changed. No melena, fevers. No urinary symptoms. Here in the emergency department her CBC electrolytes and urine are all entirely unremarkable without abnormality seen. Abdominal exam was rather limited given morbid obesity. A CT was completed. No acute intra-abdominal findings were seen including evaluation of the gallbladder bowel and appendix. There was an incidental finding made of a fat-containing mass within the left adnexa. I discussed this finding with the patient and she was previously known to have a dermoid cyst. The etiology of patient's symptoms is not entirely clear at this time though she appears hemodynamically medically stable. She is discharged home. Advised to follow-up with primary care provider. Return precautions were discussed for worsening pain, development of fevers or any uncontrolled vomiting. Departure - Departure Disposition: Home, Self Care Clinical Impression: Epigastric abdominal pain Condition: Stable Record reviewed to determine appropriate education?: Yes Instructions: ED Abdominal Pain Cause Unkn Fem Ch Comments: You are seen today in the emergency department because you have had 3 days of upper abdominal pain. Here in the emergency department your blood count, electrolytes and urine were all entirely normal. We did do a CT of your abdomen and do not finding any worrisome causes such as appendicitis, gallbladder disease or bowel obstructions. We do see a fat-containing mass within the left adnexa but you are previously known to have a dermoid cyst which this likely reflects. Here in the emergency department I did give you some Maalox and lidocaine as medications to numb and cool the stomach. You may be having some mild acid reflux or gastritis. I encourage you to discuss this ED visit with your primary care provider. If you find that your symptoms are worsening, you develop fevers, have uncontrolled vomiting, black or bloody stools then please return immediately to the ER for second evaluation
[2022-05-17 19:58] LABS: BASOPHILS % (AUTO) 0.4 %; EOSINOPHILS # (AUTO) 0.2 10^3/uL (0.0-0.7); EOSINOPHILS % (AUTO) 2.3 %; HGB - HEMOGLOBIN 13.7 g/dL (12.0-16.0); LYMPHOCYTES # (AUTO) 3.3 10^3/uL (1.5-3.5); LYMPHOCYTES % (AUTO) 41.7 %; MEAN CORPUSCULAR HGB CONC 34.3 g/dL (32.0-36.0); MEAN CORPUSCULAR VOLUME 81.8 fL (81.0-99.0); MEAN PLATELET VOLUME 8.8 fL (7.9-10.8); MONOCYTES # (AUTO) 0.5 10^3/uL (0.0-1.0); MONOCYTES % (AUTO) 5.9 %; NEUTROPHILS # (AUTO) 3.9 10^3/uL (1.5-6.6); NEUTROPHILS % (AUTO) 49.6 %; PLT - PLATELET COUNT 262 10^3/uL (130-450); RED BLOOD COUNT 4.89 10^6/uL (4.20-5.40); RED CELL DISTRIBUTION WIDTH 12.2 % (12.0-15.0); WHITE BLOOD COUNT 7.8 x10^3/uL (4.8-10.8)
[2022-05-17 20:09] LABS: ALBUMIN 4.3 g/dL (3.2-5.5); ALBUMIN/GLOBULIN RATIO 1.3 (1.0-2.2); BILIRUBIN,TOTAL 0.4 mg/dL (0.2-1.0); CALCIUM 9.3 mg/dL (8.5-10.3); CREATININE 0.6 mg/dL (0.4-1.0); POTASSIUM 3.6 mmol/L (3.5-5.0); TOTAL PROTEIN 7.6 g/dL (6.7-8.2)
--- NOTE | 2022-05-17 20:10 | CT Report ---
PROCEDURE: Abdomen/Pelvis WO INDICATIONS: right flank pain TECHNIQUE: Noncontrast 5 mm thick sections acquired from the diaphragms to the symphysis. 5 mm coronal and sagi ttal reformats were then performed. For radiation dose reduction, the following was used: automated exposure control, adjustment of mA and/or kV according to patient size. COMPARISON: None. FINDINGS: Image quality: Excellent. ABDOMEN: Lung bases: Lung bases are clear. Heart size is normal. Solid organs: Liver and spleen are normal in size. Hepatic steatosis is present. Gallbladder is unre markable. Pancreas is normal in contours. No adrenal nodules. Kidneys are normal in size, without hydronephrosis or nephrolithiasis. Peritoneum and bowel: Unenhanced bowel loops demonstrate normal wall thickness and caliber. No free fluid or air. Nodes and vessels: No retroperitoneal or mesenteric adenopathy by size criteria. Aorta and inferior vena cava are normal in caliber. Miscellaneous: No ventral hernias. PELVIS: Genitourinary: Bladder wall thickness is normal. There is a fat-containing density within the left adnexa measuring 2.5 cm. Miscellaneous: No inguinal hernias or adenopathy. Bones: No suspicious bony lesions. No vertebral body compression fractures. IMPRESSION: No renal, ureteral or bladder calculi. Fat-containing mass within the left adnexa. This may represent a dermoid. No priors are available for comparison. Pelvic ultrasound may be obtained for further evaluation as clinically indicated. Reviewed by: Janelle Murray MD on 05/17/2022 8:08 PM PDT Approved by: Janelle Murray MD on 05/17/2022 8:08 PM PDT Station ID: [id number]
[2022-05-17] MEDS ORDERED: MAG HYDROX/AL HYDROX/SIMETH 30 ML UDC PO STA (20:29)
[2022-05-17] MEDS ORDERED: LIDOCAINE VISCOUS 2% 15 ML UDC MM STA (20:29)
[2022-05-17 20:57] VITALS: BP 151/96
== END 2022-05-17 20:58 | disposition home or self-care (01) ==
LOC: ED 18:32
DX: R10.13 Epigastric pain (principal)
CPT/HCPCS: 36415; 74176; 80053; 81003; 83690; 85025; 99282; 99284; A9270; 81001; 87086

== ENCOUNTER 2022-10-07 15:52 | Outpatient (CLI) | payer OTHER ==
--- NOTE | 2022-10-07 16:34 | SLEEP CARE CONSULTATION ---
Information from patient questionnaire entered by Nicole Wick. I have reviewed and concur with the information entered by Nicole Wick. This document represents the service I personally performed and the decisions made by me, Tricia Garsia ARNP. History of Present Illness Service Date and Time: 10/07/2022 1552 Reason for Visit: New patient Chief Complaint: reports: Insomnia, Excessive daytime sleepiness, Fatigue, Frequent awakenings at night Date of Onset: QUITE A WHILE Usual bedtime: 9PM Time it takes to fall asleep: ABOUT 30MIN DEPENDING ON THE DAY Snores at night: Yes Observed to quit breathing while asleep: No Sleeps alone due to snoring: No Number of times waking at night: 2-3 Reasons for waking at night: reports: Other (NOISE AND UNKNOWN REASONS ). denies: Choking, Snoring, Gasping for air Toss, Turn, or Twitch while sleeping: Yes Recalls having dreams: Yes Usually gets out of bed at: 6-10AM Feels refreshed in the morning: No Morning headache: Yes (SOMETIMES; 1-2 times a week which last 3-4 hours or all day) Sleepy or fatigued during the day: Yes Ever fallen asleep while driving: No Takes day naps: Yes (weekends if not busy, for 1-2 hours) Dreams during day naps: Yes Prior sleep studies: No Additional HPI information: I had the pleasure of seeing COREY CLANCY today regarding the possibility of her having a sleep disorder. Her current complaints are insomnia, excessive daytime sleepiness, fatigue and frequent night awakenings. She states she has been told about four times now that she might need to get a sleep study. She is tired all the time and does not wake up feeling rested. She has no energy during the day. She has been through lots of testing through her primary doctor and was recently referred here for further evaluation of her sleep. Her has told her she only snores when she is really tired. He did tell her recently when they were traveling that she was "breathing weird" with short breaths that were harsh. She states she did have a respiratory illness at that time so she is not sure if this is normal for her. She wakes up several times a night for noises and other unknown reasons. She states her mother has sleep apnea and is using a PAP machine. - Parasomnia Symptoms Ever been unable to move upon waking from sleep: No Walks in sleep: No Talks in sleep: No (UNKNOWN ) Ever acted out dreams in sleep: No Ever felt weak in the knees when startled or emotional: No Bothered by creepy, crawly, restless sensations in legs: No Problems with memory or concentration: Yes (both; foggy headed, short term memory issues; hard time concentrating) Subjective Initial [place] Sleepiness Scale score: 16 (08/20/22) Past Medical History Past Medical History: reports: Other (eczema) Social History The patient's occupation is a [employer]. Patient is and lives in [place]. Have you smoked in the past 12 months: Yes Cigarettes per day (20/pack): 0 (SOCIALLY ONLY ) Alcohol use: Yes Alcohol amount and frequency: NOT MUCH SOCIALLY Caffeine use: Yes Caffeine amount and frequency: NOT MUCH NOT OFTEN Family History Family history of sleep disordered breathing: Yes Family Hx Sleep Apnea: Mother: Snoring, Sleep apnea - Treated, Father: Snoring, Sibling: Snoring Allergies and Home Medications Known drug allergies: No (UNKNOWN ANTIBIOTIC ) Drug allergies reviewed: Yes Home medication list reviewed: Yes (see list in EMR) Review of Systems Weight gain over past 5 years: 80 Cardiovascular: denies: high blood pressure Respiratory: denies: shortness of breath Gastrointestinal: denies: heartburn Neurological: reports: headaches Psychiatric: denies: anxiety, depression Ear/Nose/Throat: denies: tonsillectomy Endocrine: denies: thyroid disease Immunologic: reports: sneezing, rash, itching, allergies to food or environment Physical Exam Vital signs obtained and entered by: NICOLE Pickett MA Blood Pressure: 116/68 (LEFT ARM) Cuff size: long Heart Rate: 83 O2 Saturation: 96 Height: 5 ft 5.5 in Weight: 289 lb 6.4 oz Body Mass Index: 47.4 BMI Classification: Morbidly Obese Neck circumference: 17.75 Mouth and throat: narrow oropharynx Soft palate: long Hard palate: normal Uvula: normal Uvula visualization: 25% Mallampati Class III Tongue: enlarged in size with teeth palacios on lateral edges Tonsils: 2+ Neck: normal w/o lymphadenopathy or thyromegaly Heart: regular rate and rhythm Lungs: clear bilaterally Impression and Plan 1. Suspected Obstructive Sleep Apnea-Hypopnea Syndrome, as suggested by a history of irregular snoring, morning headache, frequent awakening during the night, unrefreshed sleep, cognitive impairment, and excessive daytime sleepiness. Narrow oropharynx and obesity are common predisposing factors for obstructive sleep apnea-hypopnea syndrome. I recommend proceeding to polysomnography to confirm the diagnosis and to assess severity. If the patient has significant sleep disordered breathing, a manual CPAP titration study will also be performed to find the optimal treatment pressure. I informed the patient of what the sleep studies involve and after some discussion, obtained agreement to proceed. The pathophysiology of obstructive sleep apnea-hypopnea syndrome was discussed with the patient and health risks of cardiovascular and cerebrovascular disease if not treated. Risks of drowsy driving discussed in detail and patient advised to avoid long distance driving and to pulley maintainer at the first sign of drowsiness. Patient agreed to plan. * Schedule polysomnography * Avoid long distance driving or driving when feeling sleepy. * Avoid alcohol, sedative and muscle relaxant around bedtime. * Attempt to lose weight. * Review instructions provided by trained office staff on how to prepare for the sleep study. * Return for follow-up after sleep study completed. Counseling Topics: Weight loss health impact Visit Type: In Office Time Spent with Patient (minutes): 31 Provider Statement: I spent 100% of the Face to Face Visit with the patient with greater than 50% spent counseling the patient and coordination of care.
[2022-10-07 16:37] VITALS: BP 116/68
== END 2022-10-07 15:53 | disposition home or self-care (01) ==
LOC: SC 15:52
PROVIDERS: ATTEND Nurse Practitioner Family
DX: R06.83 Snoring (principal); G47.8 Other sleep disorders; R51.9 Headache, unspecified; G47.10 Hypersomnia, unspecified; R53.83 Other fatigue; E66.01 Morbid (severe) obesity due to excess calories; Z68.42 Body mass index [BMI] 45.0-49.9, adult
CPT/HCPCS: 99203; 99212

== ENCOUNTER 2022-10-19 11:49 | Emergency (ER) | payer OTHER ==
[2022-10-19] MEDS ORDERED: KETOROLAC 15 MG/ML VIAL IVP STA (13:25)
[2022-10-19] MEDS ORDERED: PROCHLORPERAZINE 10 MG/2 ML VIAL IVP STA (13:27)
[2022-10-19] MEDS ORDERED: MECLIZINE 12.5 MG TABLET PO STA (13:28)
[2022-10-19 13:47] LABS: BASOPHILS % (AUTO) 0.4 %; EOSINOPHILS # (AUTO) 0.2 10^3/uL (0.0-0.7); EOSINOPHILS % (AUTO) 2.7 %; HCT - HEMATOCRIT 43.8 % (37.0-47.0); LYMPHOCYTES # (AUTO) 3.4 10^3/uL (1.5-3.5); MEAN CORPUSCULAR HEMOGLOBIN 26.7 pg (27.0-31.0); MEAN CORPUSCULAR VOLUME 83.6 fL (81.0-99.0); MEAN PLATELET VOLUME 9.1 fL (7.9-10.8); MONOCYTES # (AUTO) 0.4 10^3/uL (0.0-1.0); NEUTROPHILS # (AUTO) 3.1 10^3/uL (1.5-6.6); NEUTROPHILS % (AUTO) 43.9 %; PLT - PLATELET COUNT 324 10^3/uL (130-450); RED BLOOD COUNT 5.24 10^6/uL (4.20-5.40); RED CELL DISTRIBUTION WIDTH 12.4 % (12.0-15.0); WHITE BLOOD COUNT 7.2 x10^3/uL (4.8-10.8)
[2022-10-19 14:05] LABS: ALBUMIN 4.1 g/dL (3.2-5.5); ALBUMIN/GLOBULIN RATIO 1.2 (1.0-2.2); BILIRUBIN,TOTAL 0.5 mg/dL (0.2-1.0); CALCIUM 9.5 mg/dL (8.5-10.3); CREATININE 0.6 mg/dL (0.4-1.0); POTASSIUM 4.1 mmol/L (3.5-5.0); TOTAL PROTEIN 7.5 g/dL (6.7-8.2)
[2022-10-19 14:26] VITALS: BP 138/70
--- NOTE | 2022-10-19 14:30 | CT Report ---
PROCEDURE: HEAD WO INDICATIONS: headache and vertigo TECHNIQUE: Noncontrast 4.5 mm thick angled axial sections acquired from the foramen magnum to the vertex. For r adiation dose reduction, the following was used: automated exposure control, adjustment of mA and/or kV according to patient size. COMPARISON: None. FINDINGS: Image quality: Excellent. CSF spaces: Basal cisterns are patent. No extra-axial fluid collections. Ventricles are normal in size and shape. Brain: No midline shift. No intracranial masses or hemorrhage. Krishnamurthy-white matter interface is norm al. Skull and face: Calvarium and visualized facial bones are intact, without suspicious lesions. Sinuses: Visualized sinuses demonstrate moderate left maxillary sinus mucosal thickening.. IMPRESSION: 1. No acute intracranial process. Reviewed by: Janelle Murray MD on 10/19/2022 2:29 PM PST Approved by: Janelle Murray MD on 10/19/2022 2:29 PM PST Station ID: [id number]
[2022-10-19] MEDS ORDERED: ACETAMINOPHEN 325 MG TABLET PO STA (14:37)
--- NOTE | 2022-10-19 14:40 | ED Physician Documentation ---
PD HPI HEENT - Stated complaint Stated Complaint: DIZZINESS - Chief complaint Chief Complaint: Neuro - History obtained from History obtained from: Patient - History of Present Illness Timing - onset: Last night Timing - duration: Hours Timing - details: Abrupt onset, Still present (started with the vertigo with moving, then noted one sided headache, of which he has had in the past. Dx as migraine. Not commonly with aura nor comples symtpoms.) Location: Other (feeling of dizzziness onset and some head pain. Then developed right headache, which is more familiar to him with the migraines.) Associated symptoms: No: Fever, Congestion Similar symptoms before: Has not had sx before Recently seen: Emergency Dept, Not recently seen Review of Systems Constitutional: denies: Weight Loss Eyes: reports: Photophobia. denies: Loss of vision, Decreased vision Ears: denies: Loss of hearing Nose: denies: Rhinorrhea / runny nose, Congestion Throat: denies: Sore throat GI: reports: Nausea, Vomiting. denies: Abdominal Pain, Constipation, Diarrhea PD PAST MEDICAL HISTORY - Past Medical History Cardiovascular: Arrhythmia Respiratory: None Neuro: None Endocrine/Autoimmune: None GI: None GENERAL DUTY NURSE: Ovarian cysts : None HEENT: None Psych: None Musculoskeletal: None Derm: Eczema - Past Surgical History Past Surgical History: No - Present Medications Home Medications: Ambulatory Orders Medication Instructions Recorded Confirmed Calcipotriene/Betamethasone See Rx Instructions .ROUTE .COMPLEX 10/07/22 10/07/22 [Taclonex Ointment] Dupilumab [Dupixent Pen] See Rx Instructions .ROUTE .COMPLEX 10/07/22 10/07/22 Hydrocortisone 1% Cream See Rx Instructions .ROUTE .COMPLEX 10/07/22 10/07/22 [Hydrocortisone] Triamcinolone 0.1% Cream [Kenalog See Rx Instructions .ROUTE .COMPLEX 10/07/22 10/07/22 0.1% Cream] HYDROcod/ACETAM 5/325 [[place] 5/325] 1 ea PO Q6H PRN #10 tablet 10/19/22 Meclizine HCl [Motion Sickness] 25 mg PO Q6H PRN #25 tablet 10/19/22 Rizatriptan Benzoate [Rizatriptan] 5 mg PO Q2H PRN #6 tablet 10/19/22 - Allergies Allergies/Adverse Reactions: Allergies Allergy/AdvReac Type Severity Reaction Status Date / Time shellfish derived Allergy Unknown Verified 10/19/22 12:00 unknown antibiotic Allergy Unknown Uncoded 10/19/22 12:00 - Social History Does the pt smoke?: No Smoking Status: Never smoker Does the pt drink ETOH?: Yes Does the pt have substance abuse?: No - Immunizations Immunizations are current?: Yes PD ED PE NORMAL - General General: Alert and oriented X 3 - HEENT HEENT: Atraumatic - Neck Neck: Supple, no meningeal sign, No adenopathy - Cardiac Cardiac: RRR, No murmur - Abdomen Abdomen: Soft, Non tender Results - Vitals Vitals: Oxygen O2 Source Room air - Labs Labs: Laboratory Tests 10/19/22 10/19/22 10/19/22 13:41 13:41 13:41 WBC 7.2 RBC 5.24 Hgb 14.0 Hct 43.8 MCV 83.6 MCH 26.7 L MCHC 32.0 RDW 12.4 Plt Count 324 MPV 9.1 Neut # (Auto) 3.1 Lymph # (Auto) 3.4 Finney # (Auto) 0.4 Eos # (Auto) 0.2 Baso # (Auto) 0.0 Absolute Nucleated RBC 0.00 Nucleated RBC % 0.0 ESR Sodium 134 L Potassium 4.1 Chloride 98 L Carbon Dioxide 23 Anion Gap 13.0 BUN 10 Creatinine 0.6 Estimated GFR (MDRD) 114 Glucose 95 Calcium 9.5 Total Bilirubin 0.5 AST 20 ALT 19 Alkaline Phosphatase 33 L Total Protein 7.5 Albumin 4.1 Globulin 3.4 Albumin/Globulin Ratio 1.2 Lipase 31 TSH 1.89 10/19/22 13:41 WBC RBC Hgb Hct MCV MCH MCHC RDW Plt Count MPV Neut # (Auto) Lymph # (Auto) Finney # (Auto) Eos # (Auto) Baso # (Auto) Absolute Nucleated RBC Nucleated RBC % ESR 16 Sodium Potassium Chloride Carbon Dioxide Anion Gap BUN Creatinine Estimated GFR (MDRD) Glucose Calcium Total Bilirubin AST ALT Alkaline Phosphatase Total Protein Albumin Globulin Albumin/Globulin Ratio Lipase TSH - Rads (name of study) head CT Radiology: Prelim report reviewed, EMP read indepedently, See rad report PD Medical Decision Making - ED course Complexity details: reviewed results (has some vertigo with headache. Young age. I would consider atypical/complex migraine. ct done to ensure no tumor/SAH/mass. CVA less likely for his age so I do not feel I need MRI. ), re- evaluated patient (he is mostly improved with toradol, compazine, and fluids. meclizine for vertigo. ), considered differential (she has vertigo and some b lurred vision with subsequent right headache. Has history of migraines and current MENDEZ is similar. Had not had vertigo with or prior to HAs in past. Has had visual changes prior. ), d/w patient Departure - Departure Disposition: 01 Home, Self Care Clinical Impression: Vertigo, Somnolence Migraine headache Qualifiers: Migraine type: unspecified Status migrainosus presence: without status migrainosus Intractability: not intractable Qualified Code(s): G43.909 - Migraine, unspecified, not intractable, without status migrainosus Condition: Stable Record reviewed to determine appropriate education?: Yes Instructions: ED Headache Migraine, ED Vertigo Unspecified Follow-Up: Darlene Javier PA-C [Primary Care Provider] - Prescriptions: Meclizine HCl [Motion Sickness] 25 mg PO Q6H PRN #25 tablet PRN Reason: Vertigo HYDROcod/ACETAM 5/325 [[place] 5/325] 1 ea PO Q6H PRN #10 tablet PRN Reason: Pain Rizatriptan Benzoate [Rizatriptan] 5 mg PO Q2H PRN #6 tablet PRN Reason: Migraine Comments: Your dizziness may relate to inner ear process. Movement slowly and as tolerated. You can use meclizine every 6-8 hours if needed for vertigo/dizziness. However the dizziness could represent or be in conjunction with your headache as a complex migraine. If so, then the dizziness should dissipate through the day after the migraine is cleared. Tylenol or ibuprofen if needed for residual headache through the day today. You can add hydrocodone pain medicine if needed for persistent worst headache. For subsequent migraine type headaches, you can try rizatriptan migraine specific medication in conjunction with ibuprofen or such and see if that helps dissipate the headache within half hour or so. If so that can be a easy regular treatment for your recurring migraines. Follow-up with your primary care regarding further medications or evaluation. Recheck if your dizziness has not improved and resolved within a day or 2. Your basic blood tests here including blood count and chemistry panel as well as thyroid screen and blood sugar are normal. No cause noted on these for the your tiredness. Your CT scan was also normal without any signs of bleeding/tumors/swelling. Follow-up regarding sleep study testing as that can be a reason for daytime tiredness fatigue and even increased headaches due to sleep apnea or nocturnal hypoxia. I sent your prescriptions to the [facility] pharmacy. I am prescribing a short course of narcotic pain medication for you. These are potentially dangerous and addictive medications that should be used carefully. These medications may constipate you. Take an troo-peh-[id number] stool softener such as docusate twice daily with plenty of water while taking these medications. If you go 24 hours without a bowel movement, take exti-amr-[id number] MiraLAX, per package instructions. Do not drink or drive while taking these medications. If you received narcotic or sedating medications while in the emergency department do not drive for 24 hours. Store this medication in a safe, secure place and out of reach of children. It is a violation of federal law to give or sell this medication to another person or to use in a manner other than prescribed. The ED will not refill narcotic prescriptions, including prescriptions lost or stolen. You can dispose of unwanted medications at the [facility]'s office or at several pharmacies such as [facility]. Discharge Date/Time: 10/19/22 14:53
== END 2022-10-19 14:53 | disposition home or self-care (01) ==
LOC: ED 11:49
DX: R42 Dizziness and giddiness (principal); G43.909 Migraine, unspecified, not intractable, without status migrainosus; R40.0 Somnolence
CPT/HCPCS: 36415; 70450; 80053; 83690; 84443; 85025; 85651; 96374; 96375; 99283; 99284; A9270

== ENCOUNTER 2022-11-27 08:23 | Outpatient (CLI) | payer OTHER ==
[2022-11-27 13:49] LABS: ESTIMATED AVERAGE GLUCOSE 117 mg/dL (70-100); HEMOGLOBIN A1c% 5.7 % (4.27-6.07)
== END 2022-11-27 08:24 | disposition home or self-care (01) ==
LOC: LAB.N 08:23
PROVIDERS: ATTEND Physician Assistant
DX: R73.03 Prediabetes (principal)
CPT/HCPCS: 36415; 83036

== ENCOUNTER 2022-11-27 08:34 | Outpatient (CLI) | payer OTHER | END 2022-11-27 08:35 | disposition home or self-care (01) | LOC: SC 08:34 | PROVIDERS: ATTEND Nurse Practitioner Family | DX: Z53.9 Procedure and treatment not carried out, unspecified reason (principal) | CPT/HCPCS: 95806 ==

== ENCOUNTER 2022-12-14 07:53 | Outpatient (CLI) | payer OTHER | END 2022-12-14 07:54 | disposition home or self-care (01) | LOC: SC 07:53 | PROVIDERS: ATTEND Nurse Practitioner Family | DX: G47.33 Obstructive sleep apnea (adult) (pediatric) (principal); R09.02 Hypoxemia | CPT/HCPCS: 95806 ==

== ENCOUNTER 2023-01-27 13:11 | Outpatient (CLI) | payer OTHER ==
--- NOTE | 2023-01-27 12:06 | SLEEP CARE CONSULTATION ---
Information from patient questionnaire entered by Nicole Wick. I have reviewed and concur with the information entered by Nicole Wick. This document represents the service I personally performed and the decisions made by , Tricia Garsia ARNP. History of Present Illness Service Date and Time: 01/27/2023 1140 Initial [place] Sleepiness Scale score: 16 (08/20/22) Current [place] Sleepiness Scale score: 14 (01/27/23) Additional HPI information: COREY CLANCY returns via video Telehealth visit for follow up and results of the recently performed polysomnography. I explained the pathophysiology behind obstructive sleep apnea. We then spent quite a bit of time discussing different treatment options. For mild obstructive sleep apnea, surgery and oral appliance are alternatives to nasal CPAP therapy but in moderate or severe cases, nasal CPAP is the most effective and reliable treatment. I reviewed the impact of weight changes on sleep apnea and strongly recommended losing weight. After some discussion, the patient opted to go with the nasal CPAP therapy. Nasal autoCPAP set at 4-15 cmH20 will be ordered with rationale explained. A manual titration study will be ordered if unable to find optimal pressure with office adjustments. I explained how CPAP machine works and what to expect when using the machine. Using CPAP every night in order to get used to it was emphasized. Patient advised to put CPAP mask on before getting into bed so as not to fall asleep without CPAP. To assist acclimation to CPAP use, it could also be used for a short time during day while reading or watching TV. The patient was instructed to call the CPAP supplier to discuss any mechanical problem that may occur. If the mask given is uncomfortable or is difficult to keep on through the night even with adjustment, contact the CPAP supplier as many will replace with another mask style if notified before 30 days. If snoring or perceives is not getting enough air or too much air from the machine, notify this office. Patient counseled not drink alcohol less than 4 hours before bedtime as it can increase snoring and apnea. Patient was cautioned about risks of drowsy driving until sleepiness symptoms resolve. Patient denies drowsy driving. Sleep Study - Results Type of Sleep Study: Home sleep study (COMPLETED 12/15/22) Prior sleep studies: No Polysomnography/Home Sleep Study results: Physician Impression: The quality of the study is good. The length of the study is adequate (> 240 minutes). Please also see the tabulated and graphic data. 1. Obstructive Sleep Apnea-Hypopnea (ICD-10 G47.33), moderate, with an AHI of 23.2/hr and kaitlynn SaO2 of 78%. During the study, the patient had 25 apneas (25 obstructive, 0 central, 0 mixed) and 79 hypopneas. The longest episode lasted 74.5 seconds. The respiratory events occurred independently of sleep stage and body position (supine AHI was 18.9 and non-supine, 29.94). 2. Hypoxemia (ICD-10 R09.02), moderate, with the lowest oxygen saturation of 78 % and 36.6 minutes with SaO2 under 90%. Baseline oxygen saturation was normal (Average oxygen saturation was 92%). Allergies and Home Medications Known drug allergies: Yes (as listed) Drug allergies reviewed: Yes Home medication list reviewed: Yes (no changes) Allergy and home medication list: Allergies shellfish derived Allergy (Verified 01/26/23 13:53) Unknown unknown antibiotic Allergy (Uncoded 01/26/23 13:53) Unknown Review of Systems Review of systems same as previous: No (migraines) Physical Exam Vital signs obtained and entered by: NICOLE Pickett MA Height: 5 ft 4 in (PER PT) Weight: 288 lb (PER PT ) Body Mass Index: 49.4 BMI Classification: Morbidly Obese Impression and Plan 1. Obstructive Sleep Apnea-Hypopnea Syndrome, moderate, with lowest oxygen saturation of 78%. Obviously this is the cause of the patients symptoms of unrefreshed sleep, and excessive daytime sleepiness. As mentioned above, the patient will be started on nasal autoCPAP therapy with pressure set at 4-15 cmH2 O. Compliance guidelines also reviewed. A copy of compliance guidelines will be given for reference at check out. 2. Hypoxemia, moderate, with a kaitlynn oxygen saturation of 78% and 36.6 minutes spent under 90%. Her baseline oxygen saturation was normal with an average oxygen saturation of 92%. * Nasal auto CPAP therapy, pressure at 4-15 cm H2O. * Attempt to lose weight. * Avoid alcohol consumption near bedtime. * Avoid supine sleep until using CPAP. * The patient is again cautioned about driving until sleepiness completely resolves. * Return one month after CPAP obtained. I will assess response to therapy and compliance at that time. Counseling Topics: Weight loss health impact Visit Type: Telehealth Video Video Type: Doximity Location of Provider: Office Patient agrees and consents to this telehealth visit type: Yes Time Spent with Patient (minutes): 14 Provider Statement: I spent 100% of the Telehealth Video Call with the patient with greater than 50% spent counseling the patient and coordination of care.
== END 2023-01-27 13:12 | disposition home or self-care (01) ==
LOC: SC 13:11
PROVIDERS: ATTEND Nurse Practitioner Family
DX: G47.33 Obstructive sleep apnea (adult) (pediatric) (principal); R09.02 Hypoxemia; E66.01 Morbid (severe) obesity due to excess calories; Z68.42 Body mass index [BMI] 45.0-49.9, adult

== ENCOUNTER 2023-05-19 08:52 | Emergency (ER) | payer OTHER ==
--- NOTE | 2023-05-19 09:04 | ED Physician Documentation ---
PD HPI SKIN - Stated complaint Stated Complaint: ALLERGIC REACTION,SWOLLEN EYE - Chief complaint Chief Complaint: Allergic Rx - History obtained from History obtained from: Patient - History of Present Illness Timing - onset: How many days ago (2) Timing - duration: Days (2) Timing - details: Gradual onset, Still present Location: Scalp (diffusely), Face (forehead down to upper eyelids.) Quality / character: Painful, Burning, Discolored, Swelling Improved by: No: Benadryl, Steroid cream Associated symptoms: No: Fever, Myalgias Contributing factors: Other (hair dye applied 2 days ago and started reacting soon after, worse the next day.) Similar symptoms before: Diagnosis (had hair dye reaction in the past and was not supposed to get it applied but hair person did.) - Treatment prior to arrival Treatment prior to arrival: beadryl PO and labetasol topical Review of Systems Constitutional: denies: Fever, Chills Nose: denies: Rhinorrhea / runny nose, Congestion Respiratory: denies: Dyspnea, Wheezing GI: denies: Vomiting, Diarrhea PD PAST MEDICAL HISTORY - Past Medical History Cardiovascular: Arrhythmia Respiratory: None Neuro: None Endocrine/Autoimmune: None GI: None [employer]: Ovarian cysts : None HEENT: None Psych: None Musculoskeletal: None Derm: Eczema - Past Surgical History Past Surgical History: No - Present Medications Home Medications: Ambulatory Orders Medication Instructions Recorded Confirmed Calcipotriene/Betamethasone See Rx Instructions .ROUTE .COMPLEX 10/07/22 01/27/23 [Taclonex Ointment] Dupilumab [Dupixent Pen] See Rx Instructions .ROUTE .COMPLEX 10/07/22 01/27/23 Hydrocortisone 1% Cream See Rx Instructions .ROUTE .COMPLEX 10/07/22 01/27/23 [Hydrocortisone] Triamcinolone 0.1% Cream [Kenalog See Rx Instructions .ROUTE .COMPLEX 10/07/22 01/27/23 0.1% Cream] HYDROcod/ACETAM 5/325 [[place] 5/325] 1 ea PO Q6H PRN #10 tablet 10/19/22 01/27/23 Meclizine HCl [Motion Sickness] 25 mg PO Q6H PRN #25 tablet 10/19/22 01/27/23 Rizatriptan Benzoate [Rizatriptan] 5 mg PO Q2H PRN #6 tablet 10/19/22 01/27/23 Clobetasol Propionate [Clobex] 15 ml TP BID PRN #118 ml 05/19/23 Lidocaine Ointment 5% [Xylocaine 1 applic TOP QID PRN #35.44 gm 05/19/23 Ointment 5%] dexAMETHasone [Decadron] 4 mg PO DAILY #5 tablet 05/19/23 - Allergies Allergies/Adverse Reactions: Allergies Allergy/AdvReac Type Severity Reaction Status Date / Time shellfish derived Allergy Unknown Verified 05/19/23 09:00 unknown antibiotic Allergy Unknown Uncoded 05/19/23 09:00 - Social History Does the pt smoke?: No Smoking Status: Never smoker Does the pt drink ETOH?: Yes Does the pt have substance abuse?: No - Immunizations Immunizations are current?: Yes PD ED PE NORMAL - Vitals Vital signs reviewed: Yes - General General: Alert and oriented X 3, No acute distress, Well developed/nourished - HEENT HEENT: Pharynx benign - Cardiac Cardiac: RRR, No murmur - Respiratory Respiratory: Clear bilaterally - Derm Derm: Other (red and inflammed rash demarceted around edge of hair/scalp diffusely, with some edema of upper eyelids without rash (presume just gravitated edema). ) Results - Vitals Vitals: Oxygen O2 Source Room air PD Medical Decision Making - ED course Complexity details: considered differential (severe contact dermatitis from hair dye. Can give oral steroids and continue topical treatments as well. ), d/w patient Departure - Departure Disposition: 01 Home, Self Care Clinical Impression: Irritant contact dermatitis due to dyes Condition: Stable Record reviewed to determine appropriate education?: Yes Instructions: ED Dermatitis Contact Prescriptions: Clobetasol Propionate [Clobex] 15 ml TP BID PRN #118 ml PRN Reason: Allergy Symptoms dexAMETHasone [Decadron] 4 mg PO DAILY #5 tablet Lidocaine Ointment 5% [Xylocaine Ointment 5%] 1 applic TOP QID PRN #35.44 gm PRN Reason: Pain 1-4 Comments: You can use some oral steroids daily for the next several days. He can continue topical clobetasol steroid as well. For some of the more accessible areas that are painful, you could apply some topical lidocaine. Continue with antihistamine such as cetirizine and Benadryl for couple more days. Off work today. I would anticipate improvement in your rash over the next day or 2 and resolved by 3 to 5 days. I sent your prescription to your [facility] pharmacy. Forms: PCP List, Activity restrictions Discharge Date/Time: 05/19/23 09:35
[2023-05-19 09:10] VITALS: BP 156/91; O2SAT 96
[2023-05-19] MEDS ORDERED: LIDOCAINE JELLY 2% 6 ML JEL.PF.APP TOP STA (09:11)
[2023-05-19] MEDS ORDERED: dexAMETHasone 4 MG TABLET PO STA (09:11)
== END 2023-05-19 09:35 | disposition home or self-care (01) ==
LOC: ED 08:52
DX: L24.89 Irritant contact dermatitis due to other agents (principal)
CPT/HCPCS: 99283; J8540

== ENCOUNTER 2023-07-20 16:04 | Outpatient (CLI) | payer OTHER ==
--- NOTE | 2023-07-20 16:34 | Sleep Patient Instructions ---
Sleep Center Visit Summary - Patient Visit Information Reason for Visit: 6 week followup - Patient Instructions Additional Instructions: You were here for follow up of CPAP therapy. You will be continued on CPAP therapy with pressure at 10-12 cmH2O. You should follow up with sleep care in 3 months. You may contact us sooner for any questions or concerns. - Clinic Information Contact: [facility] [address] [place] [id number] [email or web address] T: [phone]
[2023-07-20 16:37] VITALS: BP 125/78; O2SAT 95
--- NOTE | 2023-07-20 16:37 | SLEEP CARE CONSULTATION ---
Information from patient questionnaire entered by Nicole Wick. I have reviewed and concur with the information entered by Nicole Wick. This document represents the service I personally performed and the decisions made by , Tricia Garsia ARNP. History of Present Illness Service Date and Time: 07/20/2023 1604 Previous diagnosis: Moderate, Obstructive Sleep Apnea-Hypopnea Syndrome AHI: 23.2 Reason for follow up: other (6 WEEK F/U PRESSURE CHANGE) Equipment type: CPAP (RESMED Airsense 11, s/u 02/2023) Equipment obtained from: Other ([facility]; getting supplies) Mask style: Nasal pillows (Sage II) Backup mask available: Yes Last cushion change: 2 weeks Prior sleep studies: No Type of Sleep Study: Home sleep study (COMPLETED 12/15/22) HPI additional information: COREY CLANCY was diagnosed to have moderate, AHI 23.2, obstructive sleep apnea-hypopnea syndrome and returned today for CPAP therapy six week follow-up. Sleep Study - Results Type of Sleep Study: Home sleep study (COMPLETED 12/15/22) Prior sleep studies: No CPAP Compliance Data - Data Reviewed with Patient Average duration of nightly device use: 7 HRS 33 MINS Compliance rate %: 80 (05/31/23-07/13/23; 35/44 days used) Current pressure setting (cmH2O): 10-12 Average residual AHI: 0.9 Central apnea: 0 Obstructive apnea: 0.4 Hypopnea: 0.4 Average large leak: 2 L/min Subjective Missed days of use due to: reports: travel (went camping) Patient concerns: denies: aerophagia, mask discomfort, air blowing in eyes, mask leak noise, condensation in mask/hose, nasal congestion, dry mouth, nose, throat, epistaxis Observed to snore while using device: No Current pressure setting perceived as: comfortable On therapy, patient: reports: sleeping better, awakening more refreshed, being more awake and alert during the day, more rested overall. denies: drowsiness while driving Initial [place] Sleepiness Scale score: 16 (08/20/22) Current [place] Sleepiness Scale score: 9 Allergies and Home Medications Known drug allergies: Yes (as listed) Drug allergies reviewed: Yes Home medication list reviewed: Yes (no changes) Allergy and home medication list: Allergies shellfish derived Allergy (Verified 07/16/23 09:37) Unknown unknown antibiotic Allergy (Uncoded 07/16/23 09:37) Unknown Home Medications Medication Instructions Recorded Confirmed Last Taken Type Calcipotriene/Betamethasone See Rx Instructions .ROUTE .COMPLEX 10/07/22 07/20/23 Unknown History [Taclonex Ointment] Dupilumab [Dupixent Pen] See Rx Instructions .ROUTE .COMPLEX 10/07/22 07/20/23 Unknown History Hydrocortisone 1% Cream See Rx Instructions .ROUTE .COMPLEX 10/07/22 07/20/23 Unknown History [Hydrocortisone] Triamcinolone 0.1% Cream [Kenalog See Rx Instructions .ROUTE .COMPLEX 10/07/22 07/20/23 Unknown History 0.1% Cream] HYDROcod/ACETAM 5/325 [[place] 5/325] 1 ea PO Q6H PRN #10 tablet 10/19/22 07/20/23 Unknown Rx Meclizine HCl [Motion Sickness] 25 mg PO Q6H PRN #25 tablet 10/19/22 07/20/23 Unknown Rx Rizatriptan Benzoate [Rizatriptan] 5 mg PO Q2H PRN #6 tablet 10/19/22 07/20/23 Unknown Rx Clobetasol Propionate [Clobex] 15 ml TP BID PRN #118 ml 05/19/23 07/20/23 Unknown Rx Lidocaine Ointment 5% [Xylocaine 1 applic TOP QID PRN #35.44 gm 05/19/23 07/20/23 Unknown Rx Ointment 5%] dexAMETHasone [Decadron] 4 mg PO DAILY #5 tablet 05/19/23 07/20/23 Unknown Rx Review of Systems Review of systems same as previous: Yes (no changes) Physical Exam Vital signs obtained and entered by: NICOLE Pickett MA Blood Pressure: 125/78 (LEFT) Cuff size: wrist Heart Rate: 87 O2 Saturation: 95 Height: 5 ft 5 in Weight: 294 lb 6.4 oz Body Mass Index: 48.9 BMI Classification: Morbidly Obese Impression and Plan 1. Obstructive Sleep Apnea-Hypopnea Syndrome, moderate, with good treatment compliance and good apnea control. On CPAP therapy, the patient has better sleep quality and is more rested overall. Patient has significant improvement of their sleep apnea and is satisfied with current CPAP therapy. Patient denies problems with oral dryness, nasal congestion, epistaxis, skin irritation or aerophagia. Patient's apnea severity and rationale for treatment to reduce apnea, improve sleep quality and reduce cardiovascular and cerebrovascular events was reviewed. 2. Obesity, unspecified. Currently patients BMI is 48.9. Obesity increases the risk of apnea, CPAP pressure requirements and overall health risks especially cardiovascular and diabetes. Thus patient is advised to lose weight. * Continue auto CPAP pressure at 10-12 cmH2O * Notify me if snoring with mask or feeling that the pressure is too much or too little * Attempt to lose weight * Call this office if any problems using CPAP * Return for follow up in 3 months, or sooner if concerns arise Counseling Topics: Weight loss health impact Follow up with Sleep Care in: 3 months Visit Type: In Office Time Spent with Patient (minutes): 20 Provider Statement: I spent 100% of the Face to Face Visit with the patient with greater than 50% spent counseling the patient and coordination of care.
== END 2023-07-20 16:05 | disposition home or self-care (01) ==
LOC: SC 16:04
PROVIDERS: ATTEND Nurse Practitioner Family
DX: G47.33 Obstructive sleep apnea (adult) (pediatric) (principal); E66.01 Morbid (severe) obesity due to excess calories; Z68.42 Body mass index [BMI] 45.0-49.9, adult
CPT/HCPCS: 99212; 99213

== ENCOUNTER 2023-07-27 17:02 | Outpatient (CLI) | payer OTHER ==
--- NOTE | 2023-07-28 22:12 | XRAY Report ---
PROCEDURE: Chest 2 View X-Ray INDICATIONS: NONSPECIFIC REACTION TO CELL MEDIATED IMMUNITY MES TECHNIQUE: 2 views of the chest were acquired. COMPARISON: 10/27/2021 and 10/06/2021. FINDINGS: Surgical changes and devices: None. Lungs and pleura: No pleural effusions or pneumothorax. Ill-defined airspace opacities are noted in right perihilar and infrahilar region. Mediastinum: Mediastinal contours appear normal. Heart size is enlarged. Bones and chest wall: No suspicious bony lesions. Overlying soft tissues appear unremarkable. IMPRESSION: Finding is concerning for small right perihilar and infrahilar infiltrate versus atelect asis. Left lung is clear. Reviewed by: Rubnes Talavera MD on 07/28/2023 10:11 PM PST Approved by: Rubens Talavera MD on 07/28/2023 10:11 PM PST Station ID: [id number]
== END 2023-07-27 17:03 | disposition home or self-care (01) ==
LOC: DI 17:02
PROVIDERS: ATTEND Physician Assistant
DX: R76.12 Nonspecific reaction to cell mediated immunity measurement of gamma interferon antigen response without active tuberculosis (principal); R91.8 Other nonspecific abnormal finding of lung field

== ENCOUNTER 2023-07-28 08:00 | Outpatient (CLI) | payer OTHER ==
[2023-07-28 14:16] LABS: BACTERIAL VAGINOSIS DNA NEGATIVE (NEGATIVE); CANDIDA GLABRATA DNA NEGATIVE (NEGATIVE); CANDIDA GROUP DNA POSITIVE (NEGATIVE); CANDIDA KRUSEI DNA NEGATIVE (NEGATIVE); TRICHOMONAS VAGINALIS DNA NEGATIVE (NEGATIVE)
== END 2023-07-28 23:59 | disposition home or self-care (01) ==
LOC: LAB.WCP 08:00
PROVIDERS: ATTEND Physician Assistant
DX: B37.9 Candidiasis, unspecified (principal)
CPT/HCPCS: 81514

== ENCOUNTER 2023-10-19 15:53 | Outpatient (CLI) | payer OTHER ==
--- NOTE | 2023-10-19 16:27 | Sleep Patient Instructions ---
Sleep Center Visit Summary - Patient Visit Information Reason for Visit: 3-month follow-up - Patient Instructions Additional Instructions: You were here for follow up of CPAP therapy. You will be continued on CPAP therapy with pressure at 10-11 cmH2O. Please let us know if the pressure change is uncomfortable and we can make further adjustments of the pressure. You should follow up with sleep care in 6 months. You may contact us sooner for any questions or concerns. - Clinic Information Contact: [facility] [address] [place] [id number] [email or web address] T: [phone]
--- NOTE | 2023-10-19 16:33 | SLEEP CARE CONSULTATION ---
Information from patient questionnaire entered by Nicole Wick. I have reviewed and concur with the information entered by Nicole Wick. This document represents the service I personally performed and the decisions made by me, Tricia Garsia ARNP. History of Present Illness Service Date and Time: 10/19/2023 1553 Previous diagnosis: Moderate, Obstructive Sleep Apnea-Hypopnea Syndrome AHI: 23.2 Reason for follow up: three month Equipment type: CPAP (RESMED Airsense 11, s/u 02/2023) Equipment obtained from: Other ([facility]; getting supplies) Mask style: Nasal pillows (Sage II) Backup mask available: Yes Last cushion change: 3 weeks Prior sleep studies: No Type of Sleep Study: Home sleep study (COMPLETED 12/15/22) HPI additional information: COREY CLANCY was diagnosed to have moderate, AHI 23.2, obstructive sleep apnea-hypopnea syndrome and returned today for CPAP therapy three month follow- up. Sleep Study - Results Type of Sleep Study: Home sleep study (COMPLETED 12/15/22) Prior sleep studies: No CPAP Compliance Data - Data Reviewed with Patient Average duration of nightly device use: 7 HRS 59 MINS Compliance rate %: 73 (07/15/23-10/12/23; 71/90 days used) Current pressure setting (cmH2O): 10-12 Average residual AHI: 0.8 Central apnea: 0 Obstructive apnea: 0.4 Hypopnea: 0.3 Average large leak: 2.6 L/min Subjective Missed days of use due to: reports: illness (sniffles, runny nose), travel Patient concerns: reports: other (feels like pressure in eye, sometimes). denies: aerophagia, mask discomfort, air blowing in eyes, mask leak noise, condensation in mask/hose, nasal congestion, dry mouth, nose, throat, epistaxis Observed to snore while using device: No Current pressure setting perceived as: comfortable On therapy, patient: reports: sleeping better, awakening more refreshed, being more awake and alert during the day, more rested overall. denies: drowsiness while driving Initial [place] Sleepiness Scale score: 16 (08/20/22) Current [place] Sleepiness Scale score: 13 (10/19/23) Allergies and Home Medications Known drug allergies: Yes ( as listed) Drug allergies reviewed: Yes Home medication list reviewed: Yes (no changes) Allergy and home medication list: Allergies shellfish derived Allergy (Verified 10/15/23 16:07) Unknown unknown antibiotic Allergy (Uncoded 10/15/23 16:07) Unknown Review of Systems Review of systems same as previous: Yes (NO CHANGE) Physical Exam Vital signs obtained and entered by: NICOLE Pickett MA Blood Pressure: 148/92 (LEFT ARM) Cuff size: regular Heart Rate: 84 O2 Saturation: 96 Height: 5 ft 5 in Weight: 283 lb 3.2 oz Body Mass Index: 47.1 BMI Classification: Morbidly Obese Impression and Plan 1. Obstructive Sleep Apnea-Hypopnea Syndrome, moderate, with good treatment compliance and good apnea control. On CPAP therapy, the patient has better sleep quality and is more rested overall. Patient states her compliance has been affected by having some sniffles and runny nose. She also says that sometimes she will get some "pressure" feeling in her right eye. She says that her mother told her that she had a blocked tear duct. She says the feeling is just weird and resolves quickly. She thinks she may also have been laying on that side. The patients pressure will be changed to autoCPAP 10-11 cmH20 to reduce any pressure feeling in eye. She was advised to see her eye doctor for evaluation and as their expert opinion on this phenomenon. She voiced understanding. Patient advised to contact me if pressure change is uncomfortable so that it can be adjusted. Goals for apnea control discussed. Patient's apnea severity and rationale for treatment to reduce apnea, improve sleep quality and reduce cardiovascular and cerebrovascular events was reviewed. 2. Obesity, unspecified. Currently patients BMI is 47.1. Obesity increases the risk of apnea, CPAP pressure requirements and overall health risks especially cardiovascular and diabetes. Thus patient is advised to lose weight. * Change auto CPAP pressure to 10-11 cmH2O * Notify me if snoring with mask or feeling that the pressure is too much or too little * Attempt to lose weight * Call this office if any problems using CPAP * Return for follow up in 6 months, or sooner if concerns arise Adjust device pressure to (cmH2O): 10-11 Counseling Topics: Spare mask, Weight loss health impact Follow up with Sleep Care in: 6 months Visit Type: In Office Time Spent with Patient (minutes): 15 Provider Statement: I spent 100% of the Face to Face Visit with the patient with greater than 50% spent counseling the patient and coordination of care.
[2023-10-19 16:48] VITALS: BP 148/92; O2SAT 96
== END 2023-10-19 15:54 | disposition home or self-care (01) ==
LOC: SC 15:53
PROVIDERS: ATTEND Nurse Practitioner Family
DX: G47.33 Obstructive sleep apnea (adult) (pediatric) (principal); E66.01 Morbid (severe) obesity due to excess calories; Z68.42 Body mass index [BMI] 45.0-49.9, adult
CPT/HCPCS: 99212

== ENCOUNTER 2024-04-26 08:47 | Outpatient (CLI) | payer OTHER ==
--- NOTE | 2024-04-26 08:52 | Sleep Patient Instructions ---
Sleep Center Visit Summary - Patient Visit Information Reason for Visit: 6-month follow-up - Patient Instructions Additional Instructions: You were here for follow up of CPAP therapy. You will be continued on CPAP therapy with pressure at 10-11 cmH2O. You should follow up with sleep care in 12 months. You may contact us sooner for any questions or concerns. - Clinic Information Contact: [facility] [address] [place] [address] [email or web address] T: [phone]
--- NOTE | 2024-04-26 09:00 | SLEEP CARE CONSULTATION ---
Information from patient questionnaire entered by Nicole Wick. I have reviewed and concur with the information entered by Nicole Wick. This document represents the service I personally performed and the decisions made by , Tricia Garsia ARNP. History of Present Illness Service Date and Time: 04/26/2024 0840 Previous diagnosis: Moderate, Obstructive Sleep Apnea-Hypopnea Syndrome AHI: 23.2 Reason for follow up: six month (F/U) Equipment type: CPAP (ResMed Airsense 11, s/u 02/12/2023) Equipment obtained from: Other ([facility]; getting supplies) Mask style: Nasal pillows (Sage II) Backup mask available: Yes Last cushion change: 1.5 weeks Prior sleep studies: No Type of Sleep Study: Home sleep study (COMPLETED 12/15/22) HPI additional information: COREY CLANCY was diagnosed to have moderate, AHI 23.2, obstructive sleep apnea-hypopnea syndrome and returned today for CPAP therapy six month follow-up. Sleep Study - Results Type of Sleep Study: Home sleep study (COMPLETED 12/15/22) Prior sleep studies: No CPAP Compliance Data - Data Reviewed with Patient Average duration of nightly device use: 7 HRS 5 MINS Compliance rate %: 76 (10/26/23-04/22/24; 147/180 days used) Current pressure setting (cmH2O): 10-11 Average residual AHI: 0.6 Central apnea: 0.1 Obstructive apnea: 0.4 Hypopnea: 0.1 Average large leak: 6.2 L/min Subjective Missed days of use due to: reports: other (just not sleeping in room sometimes) Patient concerns: denies: aerophagia, mask discomfort, air blowing in eyes, mask leak noise, condensation in mask/hose, nasal congestion, dry mouth, nose, throat, epistaxis Observed to snore while using device: No Current pressure setting perceived as: comfortable On therapy, patient: reports: sleeping better, awakening more refreshed, being more awake and alert during the day, more rested overall. denies: drowsiness while driving Initial [place] Sleepiness Scale score: 16 (08/20/22) Current [place] Sleepiness Scale score: 14 (04/26/24) Allergies and Home Medications Known drug allergies: Yes (as listed) Drug allergies reviewed: Yes Home medication list reviewed: Yes (Dupixent, Venlafaxine) Allergy and home medication list: Allergies shellfish derived Allergy (Verified 04/26/24 08:36) Unknown unknown antibiotic Allergy (Uncoded 04/26/24 08:36) Unknown Review of Systems Review of systems same as previous: Yes (no changes) Physical Exam Vital signs obtained and entered by: NICOLE Pickett MA Blood Pressure: 114/73 (RIGHT) Cuff size: wrist Heart Rate: 89 O2 Saturation: 97 Height: 5 ft 5 in Weight: 275 lb 3.2 oz Body Mass Index: 45.8 BMI Classification: Morbidly Obese Impression and Plan 1. Obstructive Sleep Apnea-Hypopnea Syndrome, moderate, with good treatment compliance and good apnea control. On CPAP therapy, the patient has better sleep quality and is more rested overall. She has good improvement of her sleep apnea and is satisfied with current CPAP therapy. Patient denies problems with oral dryness, nasal congestion, epistaxis, skin irritation or aerophagia. Patient denies problems with oral dryness, nasal congestion, epistaxis, skin irritation or aerophagia. I will update her supply prescription today. Patient's apnea severity and rationale for treatment to reduce apnea, improve sleep quality and reduce cardiovascular and cerebrovascular events was reviewed. 2. Obesity, unspecified. Currently patients BMI is 45.8. Obesity increases the risk of apnea, CPAP pressure requirements and overall health risks especially cardiovascular and diabetes. Thus patient is advised to lose weight. * Continue auto CPAP pressure at 10-11 cmH2O * Update supply prescription. * Notify me if snoring with mask or feeling that the pressure is too much or too little * Attempt to lose weight * Call this office if any problems using CPAP * Return for follow up in 12 months, or sooner if concerns arise Counseling Topics: Spare mask, Weight loss health impact Prescriptions: Device supplies Follow up with Sleep Care in: 1 year Visit Type: In Office Time Spent with Patient (minutes): 20 Provider Statement: I spent 100% of the Face to Face Visit with the patient with greater than 50% spent counseling the patient and coordination of care.
[2024-04-26 09:05] VITALS: BP 114/73; O2SAT 97
== END 2024-04-26 08:48 | disposition home or self-care (01) ==
LOC: SC 08:47
PROVIDERS: ATTEND Nurse Practitioner Family
DX: G47.33 Obstructive sleep apnea (adult) (pediatric) (principal); E66.01 Morbid (severe) obesity due to excess calories; Z68.42 Body mass index [BMI] 45.0-49.9, adult
CPT/HCPCS: 99212; 99213